=== PATIENT | female | born 1990 | race Caucasian/White ===

== ENCOUNTER 2016-10-24 18:37 | Inpatient (IN) | payer OTHER ==
--- NOTE | 2016-10-24 19:25 | ERPHSYRPT ---
- History of Present Illness Time Seen by Provider: 10/24/16 19:08 Source: patient Patient Subjective Stated Complaint: Pt states that she has been an alcoholic for about 1 year. She drinks one fifth of vodka a day. Last drink was 20 minutes ago. She states she pukes, has nose bleeds, and tremors every morning. Pt states that she does hallucinate at times. She went to see Dr. Kallie Haynes and was told she had a swollen liver and that she needed to stop the alcohol. She was told that if she couldn't do it herself, that she could come here and get admitted so that we could help with the withdrawals. States she wants help getting off the alcohol because she has two kids at home. Triage Nursing Assessment: Pt alert and oriented x3. skin pink warm and dry. afebrile. pt smells of alcohol. bowel sounds present x4. abdomen soft nontender Physician History: The patient is a 26-year-old female with her mother requesting help to stop drinking. She saw Dr. Marvin Fernandes 4 days ago and discussed her alcohol addiction problem and he told her to come to the emergency room when she wanted help to stop drinking. She has been drinking daily for the past year. She drinks approximately a fifth of vodka daily. Today she drank about half of that amount 20 minutes before arriving in the emergency room. She states that frequently in the morning she has shakes and vomits. The shakes and the vomiting are relieved by drinking alcohol. Sometimes at night she has hallucinations. Prior to the year of consuming alcohol daily, she was addicted to pain pills for 3 years. She switched to alcohol to get herself off of the pain pills. Her also consumes as much alcohol as she does. However, he currently is in [facility] and will be out of personal contact for about 2 months. The patient's mother will help her with her 2 children. The pt has been coughing for the past 2 months. Her past medical history is significant only for 2 C-sections. The patient does smoke cigarettes daily. Timing/Duration: other (1 year) Severity of Symptoms-Max: moderate Severity of Symptoms-Current: moderate Context related to: other (alcohol addiction) Associated Symptoms: ingestion Previous symptoms: same symptoms as today Allergies/Adverse Reactions: amphetamine aspartate [From Adderall] Allergy (Verified 10/24/16 18:44) amphetamine sulfate [From Adderall] Allergy (Verified 10/24/16 18:44) dextroamphetamine saccharate [From Adderall] Allergy (Verified 10/24/16 18:44) dextroamphetamine sulfate [From Adderall] Allergy (Verified 10/24/16 18:44) Home Medications: No Reportable Medications [No Reported Medications] 10/24/16 [History] Hx Tetanus, Diphtheria Vaccination/Date Given: No Hx Influenza Vaccination/Date Given: No Hx Pneumococcal Vaccination/Date Given: Yes - Past Medical History Pertinent Past Medical History: Yes Neurological History: No Pertinent History ENT History: No Pertinent History Cardiac History: No Pertinent History Respiratory History: No Pertinent History Endocrine Medical History: Hypoglycemia Musculoskeletal History: Other GI Medical History: No Pertinent History History: No Pertinent History Psycho-Social History: Attention Deficit Disorder, Depression Female Reproductive Disorders: No Pertinent History Other Medical History: Pt has chronic back pain. - Past Surgical History Past Surgical History: Yes Neuro Surgical History: No Pertinent History Cardiac: No Pertinent History Respiratory: No Pertinent History Gastrointestinal: No Pertinent History Genitourinary: No Pertinent History Musculoskeletal: No Pertinent History Female Surgical History: Section - Social History Smoking Status: Current every day smoker How long have you smoked: 5 yrs Exposure to second hand smoke: Yes Drug Use: none Patient Lives Alone: No - Female History Hx Last Menstrual Period: 10/23/2016 Hx Now: No - Review of Systems Constitutional: No Fever, No Chills Eyes: No Symptoms Ears, Nose, & Throat: No Symptoms Respiratory: Cough, No Dyspnea Cardiac: No Chest Pain, No Edema, No Syncope Abdominal/Gastrointestinal: Nausea, Vomiting Genitourinary Symptoms: No Dysuria Musculoskeletal: No Back Pain, No Neck Pain Skin: No Rash Neurological: No Dizziness, No Focal Weakness, No Sensory Changes Psychological: Alcohol Abuse, Hallucinations Endocrine: No Symptoms Hematologic/Lymphatic: No Symptoms Immunological/Allergic: No Symptoms All Other Systems: Reviewed and Negative - Nursing Vital Signs Nursing Vital Signs: Initial Vital Signs Temperature 98.5 F Temperature Source Oral Pulse Rate 96 Respiratory Rate 18 Blood Pressure [] 121/79 Pain Intensity 0 - Physical Exam General Appearance: no apparent distress Eyes, Ears, Nose, Throat Exam: normal ENT inspection, moist mucous membranes Neck Exam: normal inspection, non-tender, supple Respiratory Exam: normal breath sounds, lungs clear, No respiratory distress Cardiovascular Exam: regular rate/rhythm, No edema Gastrointestinal/Abdominal Exam: soft, No tenderness, No distention Extremities Exam: normal inspection, normal range of motion, No evidence of injury, No edema Current Suicidality: denies suicide plan Neurological Exam: alert, health data analyst II-XII nml as tested, oriented x 3 Appearance: appropriate appearance, appropriate insight Behavior/Eye Contact/Speech: alert & cooperative Thoughts/Hallucinations: normal thought pattern Skin Exam: normal color, warm, dry, No rash SpO2 Interpretation: normal SpO2: 96 Oxygen Delivery: Room Air - Radiology Exams Chest X-ray Interpretation: Interpreted by me, Negative Ordered Tests: Active Orders 24 hr Category Date Time Status Micromatic Hone Operator STAT Care 10/24/16 19:31 Active IV Insertion STAT Care 10/24/16 19:03 Active CHEST 2 VIEWS (PA AND LAT) Stat Exams 10/24/16 19:31 Taken ACETAMINOPHEN Stat Lab 10/24/16 19:34 Completed CBC W DIFF Stat Lab 10/24/16 19:34 Completed CMP Stat Lab 10/24/16 19:34 Completed Ethyl Alcohol,Urine Stat Lab 10/24/16 19:34 Completed MAG [MAGNESIUM] Stat Lab 10/24/16 19:30 Completed SALICYLATE Stat Lab 10/24/16 19:34 Completed UA W/ MICROSCOPIC Stat Lab 10/24/16 19:34 Completed Urine Triage Profile Stat Lab 10/24/16 19:34 Completed Medication Summary Discontinued Medications Generic Name Dose Route Start Last Admin Trade Name Freq PRN Reason Stop Dose Admin Diazepam 10 mg 10/24/16 19:32 10/24/16 19:43 Valium 10 Mg/2 Ml Syringe IV 10/24/16 19:33 10 mg STAT ONE Administration Diazepam Confirm 10/24/16 19:38 Valium 10 Mg/2 Ml Syringe Administered 10/24/16 19:39 Dose 10 mg .ROUTE .STK-MED ONE Sodium Chloride 1,000 mls @ 999 mls/hr 10/24/16 19:31 10/24/16 19:43 Sodium Chloride 0.9% 1000 Ml IV 10/24/16 20:31 999 mls/hr .Q1H1M STA Administration Sodium Chloride Confirm 10/24/16 19:38 Sodium Chloride 0.9% 1000 Ml Administered 10/24/16 19:39 Dose 1,000 mls @ ud .ROUTE .STK-MED ONE Ondansetron HCl 4 mg 10/24/16 19:31 10/24/16 19:43 Zofran 4 Mg/2 Ml Vial IV 10/24/16 19:32 4 mg STAT ONE Administration Ondansetron HCl Confirm 10/24/16 19:38 Zofran 4 Mg/2 Ml Vial Administered 10/24/16 19:39 Dose 4 mg .ROUTE .STK-MED ONE Thiamine HCl 100 mg 10/24/16 19:35 10/24/16 19:43 Thiamine 200 Mg/2 Ml IV 10/24/16 19:36 100 mg STAT ONE Administration Thiamine HCl Confirm 10/24/16 19:38 Thiamine 200 Mg/2 Ml Administered 10/24/16 19:39 Dose 200 mg .ROUTE .STK-MED ONE Lab/Rad Data: Laboratory Result Diagrams 10/24/16 19:34 10/24/16 19:34 Laboratory Results 10/24/16 10/24/16 10/24/16 Range/Units 19:34 19:34 19:34 WBC (4.0-10.5) K/mm3 RBC (4.1-5.4) M/mm3 Hgb (12.0-16.0) gm/dl Hct (35-47) % MCV (78-100) fl MCH (26-32) pg MCHC (32-36) g/dl RDW (11.5-14.0) % Plt Count (150-450) K/mm3 MPV (6-9.5) fl Gran % (36.0-66.0) % Lymphocytes % (24.0-44.0) % Monocytes % (0.0-12.0) % Eosinophils % (0.00-5.0) % Basophils % (0.0-0.4) % Basophils # (0-0.4) Sodium (136-145) mEq/L Potassium (3.5-5.1) mEq/L Chloride (98-107) mEq/L Carbon Dioxide (21-32) mEq/L Anion Gap (5-15) MEQ/L BUN (9-20) mg/dL Creatinine (0.55-1.30) mg/dl Estimated GFR ML/MIN Glucose (70-110) MG/DL Calcium (8.5-10.1) mg/dL Magnesium (1.8-2.4) mg/dL Total Bilirubin (0.2-1.0) mg/dL AST (15-37) U/L ALT (12-78) U/L Alkaline Phosphatase (46-116) U/L Serum Total Protein (6.4-8.2) gm/dL Albumin (3.4-5.0) g/dL Ur Collection Type CLEAN CATCH Urine Color YELLOW (YELLOW) Urine Appearance SLIGHTLY CLOUDY (CLEAR) Urine pH 6.0 6.0 (5-6) Ur Specific [place] >=1.030 (1.005-1.025) Urine Protein 100 (Negative) Urine Glucose (UA) NEGATIVE (NEGATIVE) mg/dL Urine Ketones NEGATIVE (NEGATIVE) Urine Nitrite NEGATIVE (NEGATIVE) Urine Bilirubin NEGATIVE (NEGATIVE) Urine Urobilinogen 0.2 (0-1) mg/dL Urine WBC (Auto) NEGATIVE (NEGATIVE) Urine RBC (Auto) TRACE NON-HEM (0-5) Percy/ul Urine Microscopic RBC 0-2 (0-2) /HPF Ur Epithelial Cells FEW (FEW) /HPF Urine Mucus SLIGHT (NEGATIVE) /HPF Salicylates (2.8-20.0) mg/dl Urine Opiates Level NEG. (NEGATIVE) Ur Methadone NEG. (NEGATIVE) Acetaminophen (10-30) ug/ml Urine Barbiturates NEG. (NEGATIVE) Ur Phencyclidine (PCP) NEG. (NEGATIVE) Urine Amphetamine NEG. (NEGATIVE) U Benzodiazepine Level NEG. (NEGATIVE) Urine Cocaine NEG. (NEGATIVE) Urine Marijuana (THC) NEG. (NEGATIVE) Urine Ethyl Alcohol 297 H (0.00-20) mg/dl Specimen Received 10/24/16:1930 10/24/16 10/24/16 10/24/16 Range/Units 19:34 19:34 19:30 WBC 5.2 (4.0-10.5) K/mm3 RBC 4.39 (4.1-5.4) M/mm3 Hgb 14.2 (12.0-16.0) gm/dl Hct 41.9 (35-47) % MCV 95.4 (78-100) fl MCH 32.3 H (26-32) pg MCHC 33.9 (32-36) g/dl RDW 14.9 H (11.5-14.0) % Plt Count 125 L (150-450) K/mm3 MPV 10.7 H (6-9.5) fl Gran % 59.8 (36.0-66.0) % Lymphocytes % 23.6 L (24.0-44.0) % Monocytes % 13.3 H (0.0-12.0) % Eosinophils % 1.9 (0.00-5.0) % Basophils % 1.4 (0.0-0.4) % Basophils # 0.07 (0-0.4) Sodium 141 (136-145) mEq/L Potassium 3.8 (3.5-5.1) mEq/L Chloride 101 (98-107) mEq/L Carbon Dioxide 23.8 (21-32) mEq/L Anion Gap 19.9 H (5-15) MEQ/L BUN 9 (9-20) mg/dL Creatinine 0.61 (0.55-1.30) mg/dl Estimated GFR > 60 ML/MIN Glucose 91 (70-110) MG/DL Calcium 9.4 (8.5-10.1) mg/dL Magnesium 1.7 L (1.8-2.4) mg/dL Total Bilirubin 0.6 (0.2-1.0) mg/dL AST 245 H (15-37) U/L ALT 177 H (12-78) U/L Alkaline Phosphatase 119 H (46-116) U/L Serum Total Protein 8.6 H (6.4-8.2) gm/dL Albumin 4.6 (3.4-5.0) g/dL Ur Collection Type Urine Color (YELLOW) Urine Appearance (CLEAR) Urine pH (5-6) Ur Specific [place] (1.005-1.025) Urine Protein (Negative) Urine Glucose (UA) (NEGATIVE) mg/dL Urine Ketones (NEGATIVE) Urine Nitrite (NEGATIVE) Urine Bilirubin (NEGATIVE) Urine Urobilinogen (0-1) mg/dL Urine WBC (Auto) (NEGATIVE) Urine RBC (Auto) (0-5) Percy/ul Urine Microscopic RBC (0-2) /HPF Ur Epithelial Cells (FEW) /HPF Urine Mucus (NEGATIVE) /HPF Salicylates 3.8 (2.8-20.0) mg/dl Urine Opiates Level (NEGATIVE) Ur Methadone (NEGATIVE) Acetaminophen < 2.0 L (10-30) ug/ml Urine Barbiturates (NEGATIVE) Ur Phencyclidine (PCP) (NEGATIVE) Urine Amphetamine (NEGATIVE) U Benzodiazepine Level (NEGATIVE) Urine Cocaine (NEGATIVE) Urine Marijuana (THC) (NEGATIVE) Urine Ethyl Alcohol (0.00-20) mg/dl Specimen Received - Progress Progress: unchanged Will see patient in: hospital (observation) Counseled pt/family regarding: lab results, diagnosis, rad results - Departure Time of Disposition: 21:20 Departure Disposition: Observation Clinical Impression: Alcohol withdrawal Condition: Stable Critical Care Time: No
[2016-10-24] MEDS ORDERED: Sodium Chloride 0.9% 1000 ML 1,000 ML IV STA (19:31)
[2016-10-24] MEDS ORDERED: Zofran 4 MG/2 ML VIAL IV ONE (19:31)
[2016-10-24] MEDS ORDERED: VALIUM 10 MG/2 ML SYRINGE IV ONE (19:32)
[2016-10-24] MEDS ORDERED: THIAMINE 200 MG/2 ML IV ONE (19:35)
[2016-10-24 19:38] LABS: BASOPHIL % 1.4 % (0.0-0.4); Eosinophil % 1.9 % (0.00-5.0); Granulocytes % 59.8 % (36.0-66.0); Lymphocytes % 23.6 % (24.0-44.0); Mean Cell Volume 95.4 fl (78-100); Mean Corpuscular Hemoglobin 32.3 pg (26-32); Mean Platelet Volume 10.7 fl (6-9.5); Monocytes % 13.3 % (0.0-12.0); Platelet Count 125 K/mm3 (150-450); Red Blood Count 4.39 M/mm3 (4.1-5.4); Red Cell Distribution Width 14.9 % (11.5-14.0); White Blood Count 5.2 K/mm3 (4.0-10.5)
[2016-10-24] MEDS ORDERED: Sodium Chloride 0.9% 1000 ML 1,000 ML ONE (19:38)
[2016-10-24] MEDS ORDERED: THIAMINE 200 MG/2 ML ONE (19:38)
[2016-10-24] MEDS ORDERED: Zofran 4 MG/2 ML VIAL ONE (19:38)
[2016-10-24] MEDS ORDERED: VALIUM 10 MG/2 ML SYRINGE ONE (19:38)
[2016-10-24 19:56] LABS: ALBUMIN 4.6 g/dL (3.4-5.0); ALKALINE PHOSPHATASE 119 U/L (46-116); ANION GAP 19.9 MEQ/L (5-15); BILIRUBIN,TOTAL 0.6 mg/dL (0.2-1.0); BLOOD UREA NITROGEN 9 mg/dL (9-20); CHLORIDE 101 mEq/L (98-107); Carbon Dioxide 23.8 mEq/L (21-32); Glucose 91 MG/DL (70-110); Potassium 3.8 mEq/L (3.5-5.1); SGOT/AST 245 U/L (15-37); SGPT/ALT 177 U/L (12-78); SODIUM 141 mEq/L (136-145); Total Protein 8.6 gm/dL (6.4-8.2)
[2016-10-24 19:57] LABS: COMPLETE URINE MICROSCOPIC? YES; Collection Type CLEAN CATCH; Epithelial Cells FEW /HPF (FEW); Mucus SLIGHT /HPF (NEGATIVE)
[2016-10-24 19:59] LABS: ACETAMINOPHEN < 2.0 ug/ml (10-30)
[2016-10-24] MEDS ORDERED: Ativan 2 MG/1 ML VIAL IV PRN (22:11)
[2016-10-24] MEDS: Sodium Chloride 0.9% 1000 ML 1,000 ML IV SCH (22:18)
[2016-10-24] MEDS: Ativan 2 MG/1 ML VIAL IV PRN (23:43)
[2016-10-25] MEDS ORDERED: Phenergan 25 MG INJ IV PRN ×2 (00:41→10:39)
[2016-10-25] MEDS: Sodium Chloride 0.9% 1000 ML 1,000 ML IV SCH (07:58)
[2016-10-25] MEDS: THERAGRAN MULTIVITAMIN PO SCH (08:10)
[2016-10-25] MEDS: FOLATE 1 MG PO SCH (08:10)
[2016-10-25] MEDS: VITAMIN B-1 100 MG PO SCH (08:11)
[2016-10-25] MEDS: Ativan 2 MG/1 ML VIAL IV PRN ×8 (08:11→22:33)
--- NOTE | 2016-10-25 08:47 | XRAY ---
Indication: Cough. Comparison: None PA/lateral chest demonstrates normal heart, lungs, and bony thorax.
[2016-10-25] MEDS ORDERED: IMODIUM 2 MG PO PRN (10:38)
--- NOTE | 2016-10-25 10:40 | PCM.HP ---
History of Present Illness - Chief Complaint Chief Complaint: alcohol withdrawal Date: 10/25/16 History of Present Illness: is a 26 year old female. with history of polysubstance abuse in the past which she stopped doing about 2 years ago but substituted alcohol to get her off of the pills she had been taking. She has been drinking about 1/5 a gallon of hard liquor for the last 2 years. She cannot go without a drink for more then a few hours without extreme anxiety and vomiting. She wants to quit drinking for her children. She tried to do this as an outpatient and was given gabapentin to try to help but was unable to stop due to the severe withdraw symptoms. Her last drink was yesterday prior to arrival in the ED. She is having tremors, sweats, nausea and anxiousness now. She feels dizzy and off balance as well. - Review of Systems Constitutional: Chills, Fatigue, No Fever Eyes: No Symptoms Ears, Nose, & Throat: No Symptoms, Nose Congestion Respiratory: Cough, No Short Of Breath Cardiac: Palpitations, No Chest Pain, No Edema, No Syncope Abdominal/Gastrointestinal: Nausea, No Abdominal Pain, No Vomiting, No Diarrhea Genitourinary Symptoms: No Dysuria Musculoskeletal: No Back Pain, No Neck Pain Skin: No Rash Neurological: Dizziness, Headache, Irritability, Parasthesia, Tremors, No Focal Weakness, No Sensory Changes Psychological: No Symptoms Endocrine: No Symptoms Hematologic/Lymphatic: No Symptoms Immunological/Allergic: No Symptoms Medications & Allergies Home Medications: Home Medication List No Reportable Medications [No Reported Medications] 10/24/16 [History Confirmed 10/24/16] Allergies/Adverse Reactions: Allergies Allergy/AdvReac Type Severity Reaction Status Date / Time amphetamine aspartate Allergy Verified 10/24/16 18:44 [From Adderall] amphetamine sulfate Allergy Verified 10/24/16 18:44 [From Adderall] dextroamphetamine saccharate Allergy Verified 10/24/16 18:44 [From Adderall] dextroamphetamine sulfate Allergy Verified 10/24/16 18:44 [From Adderall] - Past Medical History Past Medical History: Yes Neurological History: No Pertinent History ENT History: No Pertinent History Cardiac History: No Pertinent History Respiratory History: No Pertinent History Endocrine Medical History: Hypoglycemia Musculoskelatal History: No Pertinent History GI Medical History: No Pertinent History History: No Pertinent History Pyscho-Social History: Anxiety, Depression Reproductive Disorders: No Pertinent History Comment: Pt has chronic back pain. - Female History Hx Last Menstrual Period: 10/22/16 Are you now?: No - Past Surgical History Past Surgical History: Yes Neuro Surgical History: No Pertinent History Cardiac History: No Pertinent History Respiratory Surgery: No Pertinent History GI Surgical History: No Pertinent History Genitourinary Surgical Hx: No Pertinent History Musculskeletal Surgical Hx: No Pertinent History Female Surgical History: Section - Social History Smoking Status: Heavy tobacco smoker How long have you smoked: 12 yrs Exposure to second hand smoke: Yes Alcohol: Daily Drug Use: none - Physical Exam Vital Signs: Vital Signs - 24 hr Temp Pulse Resp BP Pulse Ox 10/25/16 10:00 98.5 F 98 H 20 114/69 94 L 10/25/16 07:43 99.6 F 79 20 129/62 96 10/25/16 05:41 74 18 10/25/16 04:00 99.2 F 94 H 18 133/81 96 10/25/16 02:00 80 17 10/25/16 00:00 98.2 F 78 20 117/72 97 10/24/16 22:42 98.9 F 87 17 114/64 96 10/24/16 21:27 96 10/24/16 20:47 96 H 18 121/79 96 10/24/16 19:51 104 H 18 116/80 96 10/24/16 18:38 98.5 F 95 H 18 135/95 96 General Appearance: anxiety, other (diaphoretic tremors of hands body and voice) Neurologic Exam: alert, oriented x 3, cooperative, sensation nml, No motor deficits Eye Exam: PERRL/EOMI, eyes nml inspection Ears, Nose, Throat Exam: normal ENT inspection, pharynx normal, moist mucous membranes Neck Exam: normal inspection, non-tender, supple, full range of motion Respiratory Exam: normal breath sounds, lungs clear, No respiratory distress Cardiovascular Exam: regular rate/rhythm, normal heart sounds, normal peripheral pulses Gastrointestinal/Abdomen Exam: soft, normal bowel sounds, No tenderness, No mass Back Exam: normal inspection, normal range of motion, No CVA tenderness, No vertebral tenderness Extremity Exam: normal inspection, normal range of motion, pelvis stable Skin Exam: normal color, warm, No rash Lymphatic Exam: No adenopathy Assessment/Plan (1) Alcohol withdrawal Current Visit: Yes Status: Acute Qualifiers: Complication of substance-induced condition: with delirium Qualified Code(s ): F10.231 - Alcohol dependence with withdrawal delirium Assessment & Plan: she is highly motivated to quit. Will do inpatient for withdrawal and will need intense outpatient follow up as well last drink was 10/24/16 use CIWA protocol and prn ativan. Add phenergan prn nausea and gabapentin tid to help with the withdrawal severe symptoms she is suffering from use the normal saline as well iv hydration thiamine and folic acid Code(s): F10.239 - ALCOHOL DEPENDENCE WITH WITHDRAWAL, UNSPECIFIED (2) Elevated transaminase level Current Visit: Yes Status: Acute Code(s): R74.0 - NONSPEC ELEV OF LEVELS OF TRANSAMNS & LACTIC ACID DEHYDRGNSE
[2016-10-25] MEDS: NEURONTIN 300 MG PO SCH ×3 (11:30→20:36)
[2016-10-25] MEDS: NICODERM CQ 14 MG TOP SCH (15:07)
[2016-10-26] MEDS: Ativan 2 MG/1 ML VIAL IV PRN ×5 (00:57→20:18)
[2016-10-26] MEDS: Sodium Chloride 0.9% 1000 ML 1,000 ML IV SCH ×2 (02:37→19:37)
[2016-10-26] MEDS: Zofran 4 MG/2 ML VIAL IV PRN ×2 (06:22→16:30)
--- NOTE | 2016-10-26 09:38 | PCM.NOTE ---
Date and Time: 10/26/16935 Subjective Assessment: still nauseated did eat a little yesterday no vomiting she did walk a little but off balance still shaky very drowsy some diarrhea mild at this time Objective Exam General Appearance: other (drowsy but awakens easily) Neurologic Exam: oriented x 3, cooperative, other (tremors hands improving) Skin Exam: warm, dry Eye Exam: pale conjunctivae, No scleral icterus Ears, Nose, Throat Exam: moist mucous membranes Neck Exam: non-tender, supple Respiratory Exam: normal breath sounds, lungs clear Cardiovascular Exam: regular rate/rhythm, normal heart sounds, No edema Gastrointestinal/Abdomen Exam: soft, normal bowel sounds, No tenderness, No distention Extremity Exam: No pedal edema OBJECTIVE DATA Vital Signs: Vital Signs - 24 hr Temp Pulse Resp BP Pulse Ox 10/26/16 07:33 98.5 F 87 18 118/76 97 10/26/16 06:00 98.7 F 75 18 106/59 94 L 10/26/16 04:00 98.7 F 75 18 106/59 94 L 10/26/16 02:00 99.2 F 88 20 130/82 97 10/26/16 00:00 99.3 F 88 20 124/85 96 10/25/16 20:00 99.4 F 102 H 20 131/86 97 10/25/16 18:00 98.3 F 95 H 20 128/72 95 10/25/16 16:00 98.8 F 68 18 119/71 98 10/25/16 14:05 91 H 20 138/90 99 10/25/16 12:00 20 10/25/16 11:57 99 F 93 H 20 120/75 97 10/25/16 10:00 98.5 F 98 H 20 114/69 94 L Oxygen-Last 24 hours O2 Percentage 4 Liters = 36% O2 Percentage 4 Liters = 36% Pain Assessment - Last Documented Pain Intensity 4 [facility] and Output: Intake & Output 10/23/16 10/24/16 10/25/16 10/26/16 11:59 11:59 11:59 11:59 Intake Total 4048 Balance 4048 Weight 65.544 kg Multi-Disciplinary Progress Notes: Multi-Disciplinary Progress Notes 10/26/16 06:35 Respiratory Note by Thad Melgoza SET SUCTION UP ON THIS PT W/ BIBI PER NURSING REQUEST. Initialized on 10/26/16 06:35 - END OF NOTE 10/25/16 20:05 Case Management Note by Karey Rutherford DISCHARGE PLAN REVIEWED. NORMALLY LIVES AT HOME WITH SPOUSE AND CHILDREN. PT DOES ADMIT TO DRINKING 1 5TH OF VODKA DAILY. ON FURTHER INVESTIGATION FOUND THE CHILDREN ARE SAFE AND STAYING WITH THE GRANDMOTHER. PLAN FOR PT TO GO HOME TO PRE EPISODIC LEVEL OF FUNCTION AND ABLE TO TOLERATE WITH ETOH DAILY. WILL CONTINUE TO MONITOR FOR ALL D/C NEEDS. Initialized on 10/25/16 20:05 - END OF NOTE Assessment/Plan (1) Alcohol withdrawal Current Visit: Yes Status: Acute Qualifiers: Complication of substance-induced condition: with delirium Qualified Code(s ): F10.231 - Alcohol dependence with withdrawal delirium Assessment & Plan: continue the gabapentin with the prn ativan for CIWA score while awake and symptomatic check labs in am continue telemetry [facility] consult tomorrow Code(s): F10.239 - ALCOHOL DEPENDENCE WITH WITHDRAWAL, UNSPECIFIED (2) Elevated transaminase level Current Visit: Yes Status: Acute Code(s): R74.0 - NONSPEC ELEV OF LEVELS OF TRANSAMNS & LACTIC ACID DEHYDRGNSE
[2016-10-26] MEDS: THERAGRAN MULTIVITAMIN PO SCH (10:00)
[2016-10-26] MEDS: VITAMIN B-1 100 MG PO SCH (10:00)
[2016-10-26] MEDS: NEURONTIN 300 MG PO SCH ×3 (10:00→21:11)
[2016-10-26] MEDS: FOLATE 1 MG PO SCH (10:00)
[2016-10-26] MEDS: NICODERM CQ 14 MG TOP SCH (15:37)
[2016-10-27] MEDS: Ativan 2 MG/1 ML VIAL IV PRN ×3 (00:15→22:55)
[2016-10-27] MEDS: Zofran 4 MG/2 ML VIAL IV PRN (00:15)
[2016-10-27] MEDS: Sodium Chloride 0.9% 1000 ML 1,000 ML IV SCH ×2 (04:16→13:19)
[2016-10-27 05:44] LABS: Mean Cell Volume 98.4 fl (78-100); Mean Platelet Volume 11.8 fl (6-9.5); Platelet Count 79 K/mm3 (150-450); Red Blood Count 3.78 M/mm3 (4.1-5.4); Red Cell Distribution Width 14.2 % (11.5-14.0); White Blood Count 4.5 K/mm3 (4.0-10.5)
[2016-10-27 05:50] LABS: Mean Corpuscular Hemoglobin 32.2 pg (26-32)
[2016-10-27 05:53] LABS: ANION GAP 15.5 MEQ/L (5-15); BLOOD UREA NITROGEN 11 mg/dL (9-20); CHLORIDE 104 mEq/L (98-107); Carbon Dioxide 23.8 mEq/L (21-32); Glucose 105 MG/DL (70-110); MAGNESIUM 1.5 mg/dL (1.8-2.4); Potassium 3.5 mEq/L (3.5-5.1); SODIUM 140 mEq/L (136-145)
[2016-10-27] MEDS: FOLATE 1 MG PO SCH (08:40)
[2016-10-27] MEDS: Magnesium 1 Gm / 100 Ml D5W*** 100 ML IV SCH ×2 (08:42→09:37)
[2016-10-27] MEDS: THERAGRAN MULTIVITAMIN PO SCH (08:45)
[2016-10-27] MEDS: VITAMIN B-1 100 MG PO SCH (08:46)
[2016-10-27] MEDS: NEURONTIN 300 MG PO SCH ×3 (09:37→22:56)
[2016-10-27] MEDS: NICODERM CQ 14 MG TOP SCH (14:55)
--- NOTE | 2016-10-27 18:31 | PCM.NOTE ---
Date and Time: 10/27/161828 Subjective Assessment: feeling a little better today was able to eat more this am did stretch out a little longer on the ativan. she is still shaking weak and fatigued. Objective Exam General Appearance: no apparent distress Neurologic Exam: alert, oriented x 3, cooperative Skin Exam: warm, dry Eye Exam: No scleral icterus Ears, Nose, Throat Exam: moist mucous membranes Neck Exam: non-tender, supple Cardiovascular Exam: regular rate/rhythm, normal heart sounds, No edema Gastrointestinal/Abdomen Exam: soft, normal bowel sounds, No tenderness Extremity Exam: normal inspection, No ralf's sign, No pedal edema OBJECTIVE DATA Vital Signs: Vital Signs - 24 hr Temp Pulse Resp BP Pulse Ox 10/27/16 16:00 98.4 F 79 18 131/93 99 10/27/16 11:16 98.4 F 95 H 20 110/65 96 10/27/16 07:43 98.6 F 87 20 109/69 97 10/27/16 04:00 97.6 F 86 18 121/88 98 10/26/16 23:59 97.6 F 88 18 136/86 97 10/26/16 19:51 98.7 F 93 H 18 123/77 98 Pain Assessment - Last Documented Pain Intensity 4 Pain Scale Used 0-10 Pain Scale Intake and Output: Intake & Output 10/25/16 10/26/16 10/27/16 10/28/16 11:59 11:59 11:59 11:59 Intake Total 4048 4733 1368 Balance 4048 4733 1368 Weight 65.544 kg 67.767 kg 67.767 kg Lab Results: Lab Results-Last 24 Hours 10/27/16 10/27/16 10/27/16 Range/Units 05:36 05:36 11:22 WBC 4.5 (4.0-10.5) K/mm3 RBC 3.78 L (4.1-5.4) M/mm3 Hgb 12.2 (12.0-16.0) gm/dl Hct 37.2 (35-47) % MCV 98.4 (78-100) fl MCH 32.2 H (26-32) pg MCHC 32.8 (32-36) g/dl RDW 14.2 H (11.5-14.0) % Plt Count 79 L (150-450) K/mm3 MPV 11.8 H (6-9.5) fl Sodium 140 (136-145) mEq/L Potassium 3.5 (3.5-5.1) mEq/L Chloride 104 (98-107) mEq/L Carbon Dioxide 23.8 (21-32) mEq/L Anion Gap 15.5 H (5-15) MEQ/L BUN 11 (9-20) mg/dL Creatinine 0.62 (0.55-1.30) mg/dl Estimated GFR > 60 ML/MIN Glucose 105 (70-110) MG/DL Calcium 8.5 (8.5-10.1) mg/dL Magnesium 1.5 L (1.8-2.4) mg/dL Urine pH 7.0 (3-8.5) Urine Ethyl Alcohol 1 (0.00-20) mg/dl Slides for Path Review YES Assessment/Plan (1) Alcohol withdrawal Current Visit: Yes Status: Acute Qualifiers: Complication of substance-induced condition: with delirium Qualified Code(s ): F10.231 - Alcohol dependence with withdrawal delirium Assessment & Plan: [facility] consult today continue ciwa protocol appears to be improving hope for improvement in the next 1 to 2 days. Code(s): F10.239 - ALCOHOL DEPENDENCE WITH WITHDRAWAL, UNSPECIFIED (2) Elevated transaminase level Current Visit: Yes Status: Acute Code(s): R74.0 - NONSPEC ELEV OF LEVELS OF TRANSAMNS & LACTIC ACID DEHYDRGNSE (3) Thrombocytopenia Current Visit: Yes Status: Acute
[2016-10-28] MEDS: Sodium Chloride 0.9% 1000 ML 1,000 ML IV SCH ×2 (01:21)
[2016-10-28 07:30] VITALS: BP 109/63; PULSE 71; O2SAT 98
--- NOTE | 2016-10-28 08:22 | PCM.DCORD ---
- Discharge Discharge Date: 10/28/16 Disposition: Home, Self-Care Condition: Stable Prescriptions: New Gabapentin 300 mg PO TID #0 capsule Additional Instructions: Go To [facility] to establish for outpatient treatment today Follow up with: ANYA GARCÍA [Primary Care Provider] -
[2016-10-28] MEDS: FOLATE 1 MG PO SCH (08:34)
[2016-10-28] MEDS: VITAMIN B-1 100 MG PO SCH (08:34)
[2016-10-28] MEDS: NEURONTIN 300 MG PO SCH (08:34)
[2016-10-28] MEDS: THERAGRAN MULTIVITAMIN PO SCH (08:34)
--- NOTE | 2016-10-28 12:51 | PCM.DS ---
Discharge Summary Date of Admission: 10/24/16 21:40 Date of Discharge: 10/28/16 Admitting Physician: ANYA GARCÍA Primary Care Provider: ANYA GARCÍA Allergies Allergies amphetamine aspartate [From Adderall] Allergy (Verified 10/24/16 18:44) amphetamine sulfate [From Adderall] Allergy (Verified 10/24/16 18:44) dextroamphetamine saccharate [From Adderall] Allergy (Verified 10/24/16 18:44) dextroamphetamine sulfate [From Adderall] Allergy (Verified 10/24/16 18:44) Hospital Summary - Hospital Course Hospital Course: She has a heavy alcohol use history and was highly motivated to quit for her children and and was attempting to do it at home but would become very nauseated and physically ill if she went only a few hours without a drink. She was admitted for alcohol withdraw she did have some hallucinations shaking unstable gait and tremors. SHe was treated with ativan per [facility] protocol as well as gabapentin. She improved by day 5 was requiring much less ativan and felt comfortable with discharge to home. She was seen by [facility] while here and arrangements made to set her up with continued intensive outpatient treatment for substance abuse. She will continue the gabapentin for the next week to help. We also discussed options such as antabuse if she wants. - Vitals & Intake/Output Vital Signs: Vital Signs Temperature 98.3 F 10/28/16 07:29 Pulse Rate 71 10/28/16 07:29 Respiratory Rate 18 10/28/16 07:29 Blood Pressure 109/63 10/28/16 07:29 O2 Sat by Pulse Oximetry 98 10/28/16 07:29 Oxygen-Last Documented O2 Percentage 4 Liters = 36% Intake & Output: Intake & Output 10/26/16 10/27/16 10/28/16 10/29/16 11:59 11:59 11:59 11:59 Intake Total 404 4734 4835 Balance 4046 4733 483 Weight 65.544 kg 67.767 kg 67.767 kg - Lab Result Diagrams: 10/27/16 05:36 10/27/16 05:36 - Procedures and Test Procedures and Tests throughout Hospitalization: Therapy Orders & Screens 10/24/16 23:30 Smoking Cessation Education ONCE Comment: Diagnosis: alcohol withdrawal Smoking Status: Heavy tobacco smoker How long have you smoked: 12 yrs Have you smoked in the past 12 months: Yes Approximately how many cigarettes per day: 20 Do you dip or chew tobacco: No Discharge Exam General Appearance: no apparent distress, alert Neurologic Exam: alert, oriented x 3, cooperative, normal mood/affect, nml cerebellar function, sensation nml, No motor deficits Skin Exam: normal color, warm, dry Eye Exam: PERRL, EOMI, eyes nml inspection Ears, Nose, Throat Exam: normal ENT inspection, pharynx normal, moist mucous membranes Neck Exam: normal inspection, non-tender, supple, full range of motion Respiratory Exam: normal breath sounds, lungs clear, No respiratory distress Cardiovascular Exam: regular rate/rhythm, normal heart sounds Gastrointestinal/Abdomen Exam: soft, No tenderness, No mass Extremity Exam: normal inspection, normal range of motion Back Exam: normal inspection, normal range of motion, No CVA tenderness, No vertebral tenderness Pelvic Exam: deferred Rectal Exam: deferred Final Diagnosis/Problem List - Final Discharge Diagnosis/Problem (1) Alcohol withdrawal Status: Acute (2) Elevated transaminase level Status: Acute (3) Thrombocytopenia Status: Acute - Discharge Disposition: Home, Self-Care Condition: Stable Prescriptions: New Gabapentin 300 mg PO TID #0 capsule Instructions: Depression -- Adult, Alcohol Abuse and Alcoholism Additional Instructions: Go To [facility] to establish for outpatient treatment today Follow up with: ANYA GARCÍA [Primary Care Provider] - 11/04/16 10:30 am Forms: Discharge Instructions
== END 2016-10-28 08:55 | disposition home or self-care (01) | DRG 897 ==
LOC: ED 18:37 → MED SURG 21:40 → UNDOADMOB 21:40 → OBSVTOIN 21:40 → INTOOBSV 21:40 → OBSVTOIN 10-25 10:40 → INTOOBSV 10-25 10:40 → UNDODISIN 10-28 08:55
PROVIDERS: ADMIT Family Medicine; ATTEND Family Medicine
DX: F10.231 Alcohol dependence with withdrawal delirium (principal); F10.239 Alcohol dependence with withdrawal, unspecified; R74.0 Nonspecific elevation of levels of transaminase and lactic acid dehydrogenase [LDH]; D69.6 Thrombocytopenia, unspecified; F41.8 Other specified anxiety disorders; M54.9 Dorsalgia, unspecified; G89.29 Other chronic pain; F45.42 Pain disorder with related psychological factors; Z72.0 Tobacco use
CPT/HCPCS: 36000; 36415; 71020; 80048; 80053; 80307; 80320; 81000; 83735; 83986; 85025; 85027; 90791; 93041; 93268; 96360; 96374; 96375; 99284; G0378; G0481; J2060; J2405; J2550; J3360; J3475; Q3014

== ENCOUNTER 2016-11-24 07:24 | Observation (INO) | payer OTHER ==
[2016-11-24] MEDS ORDERED: Sodium Chloride 0.9% 1000 ML 1,000 ML IV STA (07:49)
[2016-11-24 08:08] LABS: Collection Type VOID
--- NOTE | 2016-11-24 08:08 | ERPHSYRPT ---
- History of Present Illness Time Seen by Provider: 11/24/16 07:45 Historian: patient Exam Limitations: clinical condition Patient Subjective Stated Complaint: pt co left sided abd pain since this morning, nausea and vomitng this morning, states no bm for 5 days not. no pt states vomiting for a week now, she is poor historian, Triage Nursing Assessment: pt is anxious, alert, flight of ideas, resp easy,, abd soft, Physician History: PATIENT WITH HISTORY OF ALCOHOL ABUSE, DRINKS VODKA EACH MORNING, COMPLAINS OF LEFT UPPER ABDOMINAL PAIN INITIALLY, TOOK AN UNKNOWN AMOUNT OF AUNTS ADDERALL, NOW HAS PALPITATIONS AND FELLS THE SHAKES. SISTER STATES PATIENT HAS AUDITORY AND VISUAL HALLUCINATIONS. TALKING TO PEOPLE WHO ARE NOT IN THE ROOM. Timing/Duration: today Activities at Onset: none Abdominal Pain Onset Location: [facility] Pain Radiation: [facility] Severity of Pain-Max: moderate Severity of Pain-Current: none Modifying Factors: Improves With: nothing Associated Symptoms: other (PALPITATIONS, SHAKES) Previous symptoms: no prior history Allergies/Adverse Reactions: amphetamine aspartate [From Adderall] Allergy (Verified 11/24/16 07:36) amphetamine sulfate [From Adderall] Allergy (Verified 11/24/16 07:36) dextroamphetamine saccharate [From Adderall] Allergy (Verified 11/24/16 07:36) dextroamphetamine sulfate [From Adderall] Allergy (Verified 11/24/16 07:36) Home Medications: No Reportable Medications [No Reported Medications] 11/24/16 [History] Hx Tetanus, Diphtheria Vaccination/Date Given: No Hx Influenza Vaccination/Date Given: No Hx Pneumococcal Vaccination/Date Given: No Immunizations Up to Date: Yes - Review of Systems Constitutional: No Symptoms, No Fever, No Chills Eyes: No Symptoms Ears, Nose, & Throat: No Symptoms Respiratory: No Cough, No Dyspnea Cardiac: No Chest Pain, No Edema, No Syncope Abdominal/Gastrointestinal: No Abdominal Pain, No Nausea, No Vomiting, No Diarrhea Genitourinary Symptoms: No Symptoms, No Dysuria Musculoskeletal: No Symptoms, No Back Pain, No Neck Pain Skin: No Symptoms, No Rash Neurological: No Dizziness, No Focal Weakness, No Sensory Changes Psychological: Alcohol Abuse, Hallucinations Endocrine: No Symptoms All Other Systems: Reviewed and Negative - Past Medical History Pertinent Past Medical History: Yes Neurological History: No Pertinent History ENT History: No Pertinent History Cardiac History: No Pertinent History Respiratory History: No Pertinent History Endocrine Medical History: Hypoglycemia Musculoskeletal History: No Pertinent History GI Medical History: No Pertinent History History: No Pertinent History Psycho-Social History: Anxiety, Depression Female Reproductive Disorders: No Pertinent History Other Medical History: swollen liver - Past Surgical History Past Surgical History: Yes Neuro Surgical History: No Pertinent History Cardiac: No Pertinent History Respiratory: No Pertinent History Gastrointestinal: No Pertinent History Genitourinary: No Pertinent History Musculoskeletal: No Pertinent History Female Surgical History: Section - Social History Smoking Status: Current every day smoker How long have you smoked: 12 yrs Exposure to second hand smoke: Yes Drug Use: other Patient Lives Alone: No - Female History Hx Last Menstrual Period: oct Hx Now: No - Nursing Vital Signs Nursing Vital Signs: Initial Vital Signs Temperature 97.2 F Temperature Source Oral Pulse Rate 108 Respiratory Rate 16 Blood Pressure [Right Arm] 146/107 Pain Intensity 0 - Physical Exam General Appearance: anxiety, other (RESTING TREMOR) Eye Exam: PERRL/EOMI, eyes nml inspection Ears, Nose, Throat Exam: normal ENT inspection, pharynx normal, moist mucous membranes Neck Exam: normal inspection, non-tender, supple, full range of motion Respiratory Exam: normal breath sounds, lungs clear, No respiratory distress Cardiovascular Exam: regular rate/rhythm, normal heart sounds Gastrointestinal/Abdomen Exam: soft, normal bowel sounds, other (NONTENDER, NO PALPABLE MASSES), No tenderness, No mass Back Exam: normal inspection, normal range of motion, No CVA tenderness, No vertebral tenderness Extremity Exam: normal inspection, normal range of motion, pelvis stable Neurologic Exam: alert, oriented x 3, cooperative, normal mood/affect, nml cerebellar function, sensation nml, other, No motor deficits Skin Exam: normal color, warm, dry SpO2 Interpretation: normal SpO2: 99 Oxygen Delivery: Room Air - Course EKG Interpreted by Me: RATE, Sinus Tach, NORMAL AXIS Ordered Tests: Active Orders 24 hr Category Date Time Status Up With Assistance ROUTINE Activity 11/24/16 09:29 Ordered Accucheck Q4H Care 11/24/16 09:29 Ordered Admission/Status Order ROUTINE Care 11/24/16 09:29 Ordered Call Admit Doctor for Orders ON ADMISSION Care 11/24/16 09:30 Ordered Code Status Order ROUTINE Care 11/24/16 09:29 Ordered EKG-ER Only STAT Care 11/24/16 07:49 Active IV Care Q6H Care 11/24/16 09:29 Ordered IV Insertion STAT Care 11/24/16 07:49 Active Pulse Oximetry (ED) STAT Care 11/24/16 07:49 Active Telemetry ROUTINE Care 11/24/16 09:29 Ordered Vital Signs Q4H Care 11/24/16 09:29 Ordered Regular Diet Diet 11/24/16 Lunch Ordered AMYLASE Stat Lab 11/24/16 07:30 Completed CBC W DIFF Stat Lab 11/24/16 07:30 Completed CMP Stat Lab 11/24/16 07:30 Completed Ethyl Alcohol,Urine Stat Lab 11/24/16 07:59 Completed HCG,QUALITATIVE URINE Stat Lab 11/24/16 07:59 Completed Manual Differential NC Stat Lab 11/24/16 07:30 Completed UA W/ MICROSCOPIC Stat Lab 11/24/16 07:59 Completed Urine Triage Profile Stat Lab 11/24/16 07:59 Completed Transfer Order Routine Transfer 11/24/16 09:28 Ordered Medication Summary Discontinued Medications Generic Name Dose Route Start Last Admin Trade Name Freq PRN Reason Stop Dose Admin Chlordiazepoxide HCl 50 mg 11/24/16 08:53 11/24/16 09:13 Librium 25 Mg PO 11/24/16 08:54 50 mg STAT ONE Administration Sodium Chloride 1,000 mls @ 999 mls/hr 11/24/16 07:49 11/24/16 08:13 Sodium Chloride 0.9% 1000 Ml IV 11/24/16 08:49 999 mls/hr .Q1H1M STA Administration Sodium Chloride Confirm 11/24/16 08:09 Sodium Chloride 0.9% 1000 Ml Administered 11/24/16 08:10 Dose 1,000 mls @ ud .ROUTE .STK-MED ONE Lorazepam 2 mg 11/24/16 08:54 11/24/16 09:13 Ativan 2 Mg/1 Ml Vial IV 11/24/16 08:55 2 mg STAT ONE Administration Lorazepam Confirm 11/24/16 08:57 Ativan 2 Mg/1 Ml Vial Administered 11/24/16 08:58 Dose 2 mg .ROUTE .STK-MED ONE Lab/Rad Data: Laboratory Result Diagrams 11/24/16 07:30 11/24/16 07:30 Laboratory Results 11/24/16 11/24/16 11/24/16 Range/Units 07:59 07:59 07:59 WBC (4.0-10.5) K/mm3 RBC (4.1-5.4) M/mm3 Hgb (12.0-16.0) gm/dl Hct (35-47) % MCV (78-100) fl MCH (26-32) pg MCHC (32-36) g/dl RDW (11.5-14.0) % Plt Count (150-450) K/mm3 MPV (6-9.5) fl Segmented Neutrophils (36.0-66.0) % Lymphocytes (Manual) (24-44) % Monocytes (Manual) (0.0-12.0) % Differential Comment Platelet Estimate (NORMAL) Sodium (136-145) mEq/L Potassium (3.5-5.1) mEq/L Chloride (98-107) mEq/L Carbon Dioxide (21-32) mEq/L Anion Gap (5-15) MEQ/L BUN (9-20) mg/dL Creatinine (0.55-1.30) mg/dl Estimated GFR ML/MIN Glucose (70-110) MG/DL Calcium (8.5-10.1) mg/dL Total Bilirubin (0.2-1.0) mg/dL AST (15-37) U/L ALT (12-78) U/L Alkaline Phosphatase (46-116) U/L Serum Total Protein (6.4-8.2) gm/dL Albumin (3.4-5.0) g/dL Amylase (25-115) U/L Ur Collection Type VOID Urine Color DARK YELLOW (YELLOW) Urine Appearance CLOUDY (CLEAR) Urine pH 9.5 (5-6) Ur Specific [place] 1.020 (1.005-1.025) Urine Protein >=300 (Negative) Urine Glucose (UA) NEGATIVE (NEGATIVE) mg/dL Urine Ketones MODERATE-40 (NEGATIVE) Urine Nitrite NEGATIVE (NEGATIVE) Urine Bilirubin SMALL (NEGATIVE) Urine Urobilinogen 1 (0-1) mg/dL Urine WBC (Auto) NEGATIVE (NEGATIVE) Urine RBC (Auto) NEGATIVE (0-5) Percy/ul Urine Microscopic RBC 0-2 (0-2) /HPF Urine Microscopic WBC 2-5 (0-5) /HPF Ur Epithelial Cells MANY (FEW) /HPF Urine Bacteria MODERATE (NEGATIVE) /HPF Hyaline Casts 2-5 (0-2) /LPF Urine Mucus MANY (NEGATIVE) /HPF Urine HCG, Qual NEGATIVE (Negative) Urine Opiates Level NEG. (NEGATIVE) Ur Methadone NEG. (NEGATIVE) Urine Barbiturates NEG. (NEGATIVE) Ur Phencyclidine (PCP) NEG. (NEGATIVE) Urine Amphetamine POS. (NEGATIVE) U Benzodiazepine Level NEG. (NEGATIVE) Urine Cocaine NEG. (NEGATIVE) Urine Marijuana (THC) POS. (NEGATIVE) Urine Ethyl Alcohol (0.00-20) mg/dl Specimen Received 11/24/16 0730 11/24/16 11/24/16 11/24/16 Range/Units 07:59 07:30 07:30 WBC 10.5 (4.0-10.5) K/mm3 RBC 4.28 (4.1-5.4) M/mm3 Hgb 13.9 (12.0-16.0) gm/dl Hct 40.5 (35-47) % MCV 94.6 (78-100) fl MCH 32.5 H (26-32) pg MCHC 34.3 (32-36) g/dl RDW 13.3 (11.5-14.0) % Plt Count 108 L (150-450) K/mm3 MPV 11.3 H (6-9.5) fl Segmented Neutrophils 90 H (36.0-66.0) % Lymphocytes (Manual) 4 L (24-44) % Monocytes (Manual) 6 (0.0-12.0) % Differential Comment NORMAL Platelet Estimate DECREASED (NORMAL) Sodium 134 L (136-145) mEq/L Potassium 3.3 L (3.5-5.1) mEq/L Chloride 95 L (98-107) mEq/L Carbon Dioxide 25.0 (21-32) mEq/L Anion Gap 17.3 H (5-15) MEQ/L BUN 8 L (9-20) mg/dL Creatinine 0.78 (0.55-1.30) mg/dl Estimated GFR > 60 ML/MIN Glucose 131 H (70-110) MG/DL Calcium 10.1 (8.5-10.1) mg/dL Total Bilirubin 1.9 H (0.2-1.0) mg/dL AST 56 H (15-37) U/L ALT 53 (12-78) U/L Alkaline Phosphatase 109 (46-116) U/L Serum Total Protein 8.6 H (6.4-8.2) gm/dL Albumin 4.3 (3.4-5.0) g/dL Amylase 27 (25-115) U/L Ur Collection Type Urine Color (YELLOW) Urine Appearance (CLEAR) Urine pH TNP (5-6) Ur Specific [place] (1.005-1.025) Urine Protein (Negative) Urine Glucose (UA) (NEGATIVE) mg/dL Urine Ketones (NEGATIVE) Urine Nitrite (NEGATIVE) Urine Bilirubin (NEGATIVE) Urine Urobilinogen (0-1) mg/dL Urine WBC (Auto) (NEGATIVE) Urine RBC (Auto) (0-5) Percy/ul Urine Microscopic RBC (0-2) /HPF Urine Microscopic WBC (0-5) /HPF Ur Epithelial Cells (FEW) /HPF Urine Bacteria (NEGATIVE) /HPF Hyaline Casts (0-2) /LPF Urine Mucus (NEGATIVE) /HPF Urine HCG, Qual (Negative) Urine Opiates Level (NEGATIVE) Ur Methadone (NEGATIVE) Urine Barbiturates (NEGATIVE) Ur Phencyclidine (PCP) (NEGATIVE) Urine Amphetamine (NEGATIVE) U Benzodiazepine Level (NEGATIVE) Urine Cocaine (NEGATIVE) Urine Marijuana (THC) (NEGATIVE) Urine Ethyl Alcohol 4 (0.00-20) mg/dl Specimen Received - Progress Progress Note: 11/24/16 09:25 PATIENT GIVEN NORMAL SALINE IV 1LITER/HR, ATIVAN 2MG, LIBRIUM 50MG ORALLY Discussed with : Dilia Will see patient in: hospital (observation) (AT 0900 FOR ADMISSION) - Departure Time of Disposition: 09:30 Departure Disposition: Observation Clinical Impression: ALCOHOL WITHDRAWAL, POLYSUBSTANCE ABUSE Condition: Stable Critical Care Time: No Referrals: ANYA GARCÍA [Primary Care Provider] -
[2016-11-24] MEDS ORDERED: Sodium Chloride 0.9% 1000 ML 1,000 ML ONE (08:09)
[2016-11-24 08:10] LABS: COMPLETE URINE MICROSCOPIC? YES; Ph 9.5 (5-6)
[2016-11-24 08:14] LABS: ALBUMIN 4.3 g/dL (3.4-5.0); ALKALINE PHOSPHATASE 109 U/L (46-116); ANION GAP 17.3 MEQ/L (5-15); BILIRUBIN,TOTAL 1.9 mg/dL (0.2-1.0); BLOOD UREA NITROGEN 8 mg/dL (9-20); CHLORIDE 95 mEq/L (98-107); Glucose 131 MG/DL (70-110); Potassium 3.3 mEq/L (3.5-5.1); SGOT/AST 56 U/L (15-37); SGPT/ALT 53 U/L (12-78); SODIUM 134 mEq/L (136-145); Total Protein 8.6 gm/dL (6.4-8.2)
[2016-11-24 08:20] LABS: Mean Cell Volume 94.6 fl (78-100); Mean Corpuscular Hemoglobin 32.5 pg (26-32); Mean Platelet Volume 11.3 fl (6-9.5); Platelet Count 108 K/mm3 (150-450); Red Blood Count 4.28 M/mm3 (4.1-5.4); Red Cell Distribution Width 13.3 % (11.5-14.0); White Blood Count 10.5 K/mm3 (4.0-10.5)
[2016-11-24 08:25] LABS: Bacteria MODERATE /HPF (NEGATIVE); Epithelial Cells MANY /HPF (FEW); Mucus MANY /HPF (NEGATIVE)
[2016-11-24] MEDS ORDERED: LIBRIUM 25 MG PO ONE (08:53)
[2016-11-24] MEDS ORDERED: Ativan 2 MG/1 ML VIAL IV ONE (08:54)
[2016-11-24] MEDS ORDERED: Ativan 2 MG/1 ML VIAL ONE (08:57)
[2016-11-24 09:02] LABS: Total Cells Counted 100
[2016-11-24 09:05] LABS: Platelet Estimate DECREASED (NORMAL)
[2016-11-24] MEDS ORDERED: Zofran 4 MG/2 ML VIAL IV PRN (09:33)
[2016-11-24] MEDS ORDERED: Ativan 2 MG/1 ML VIAL IV PRN (09:51)
[2016-11-24] MEDS ORDERED: PHENERGAN 25 MG PO PRN (09:51)
[2016-11-24] MEDS ORDERED: Phenergan 25 MG INJ IVIM PRN (09:51)
[2016-11-24] MEDS: VITAMIN B-1 100 MG PO SCH (10:59)
[2016-11-24] MEDS: Ativan 2 MG/1 ML VIAL IV PRN ×5 (11:00→14:55)
[2016-11-24] MEDS: THERAGRAN MULTIVITAMIN PO SCH (11:00)
[2016-11-24] MEDS: PROTONIX 40 MG IV IV SCH (11:00)
[2016-11-24] MEDS: Sodium Chloride 0.9% W/ 20 mEq KCl/LITER 1,000 ML IV SCH ×2 (11:00→20:59)
[2016-11-24] MEDS: FOLATE 1 MG PO SCH (11:00)
[2016-11-24] MEDS: NEURONTIN 300 MG PO SCH ×2 (14:57→22:10)
[2016-11-24] MEDS: Geodon 20 MG INJ IM PRN (15:26)
--- NOTE | 2016-11-24 19:52 | PCM.HP ---
History of Present Illness - Chief Complaint Chief Complaint: Drug intoxication Date: 11/24/16 History of Present Illness: is a 26 year old female. with history of alcohol abuse and polysubstance abuse. She was recently admitted for alcohol detoxification and this was successful. According to her mother she went home for 3 days and did well but then her grandfather who she lived with and she began drinking heavily again. She also started using other substances as well and the mother reports that Dorota was using methamphetamine with her and possibly some other substances such as "home made acid". Dorota reported she was unsure what it was she took. Since then she has been having severe hallucinations auditory and visual and paranoia and has been combative at times. She did required IM sedation with Geodon as the Ativan was not helping. She reportedly was drinking alcohol as well prior to her arrival. Dorota is now sedated and unable to provide the history. Medications & Allergies Home Medications: Home Medication List No Reportable Medications [No Reported Medications] 11/24/16 [History Confirmed 11/24/16] Allergies/Adverse Reactions: Allergies Allergy/AdvReac Type Severity Reaction Status Date / Time amphetamine aspartate Allergy Verified 11/24/16 10:40 [From Adderall] amphetamine sulfate Allergy Verified 11/24/16 10:40 [From Adderall] dextroamphetamine saccharate Allergy Verified 11/24/16 10:40 [From Adderall] dextroamphetamine sulfate Allergy Verified 11/24/16 10:40 [From Adderall] - Past Medical History Past Medical History: Yes Neurological History: No Pertinent History ENT History: No Pertinent History Cardiac History: No Pertinent History Respiratory History: No Pertinent History Endocrine Medical History: Hypoglycemia Musculoskelatal History: No Pertinent History GI Medical History: No Pertinent History History: No Pertinent History Pyscho-Social History: Anxiety, Depression Reproductive Disorders: No Pertinent History Comment: swollen liver - Female History Hx Last Menstrual Period: 11/01/16 Are you now?: No - Past Surgical History Past Surgical History: Yes Neuro Surgical History: No Pertinent History Cardiac History: No Pertinent History Respiratory Surgery: No Pertinent History GI Surgical History: No Pertinent History Genitourinary Surgical Hx: No Pertinent History Musculskeletal Surgical Hx: No Pertinent History Female Surgical History: Section - Social History Smoking Status: Current every day smoker How long have you smoked: 12 yrs Exposure to second hand smoke: Yes Alcohol: Heavy, Daily Drug Use: marijuana, methamphetamines, other - Physical Exam Vital Signs: Vital Signs - 24 hr Temp Pulse Resp BP Pulse Ox 11/24/16 17:33 126 H 22 116/76 96 11/24/16 14:00 145 H 24 150/104 98 11/24/16 12:19 98.8 F 116 H 22 154/100 98 11/24/16 10:02 99.1 F 108 H 18 145/100 99 11/24/16 09:34 99 11/24/16 09:20 108 H 16 146/107 98 11/24/16 08:22 121 H 22 100 11/24/16 07:59 99 11/24/16 07:28 97.2 F 143 H 16 149/107 99 General Appearance: no apparent distress Neurologic Exam: No motor deficits Eye Exam: PERRL/EOMI, eyes nml inspection Ears, Nose, Throat Exam: normal ENT inspection, TMs normal, pharynx normal, moist mucous membranes Neck Exam: normal inspection, non-tender, supple, full range of motion Respiratory Exam: normal breath sounds, lungs clear, No respiratory distress Cardiovascular Exam: regular rate/rhythm, normal heart sounds, normal peripheral pulses Gastrointestinal/Abdomen Exam: soft, normal bowel sounds, No tenderness, No mass Back Exam: normal inspection, normal range of motion, No CVA tenderness, No vertebral tenderness Extremity Exam: normal inspection, normal range of motion, pelvis stable Skin Exam: normal color, warm, dry, No rash Lymphatic Exam: No adenopathy Results - Other Procedures and Tests Respiratory Therapy 11/24/16 10:33 Smoking Cessation Education ONCE Assessment/Plan (1) Amphetamine abuse Current Visit: Yes Status: Acute Assessment & Plan: will continue with observation in ICU with iv sedation with ativan with her delirium and hallucinations this was controlled with IM Geodon monitor for alcohol withdrawal as well on CIWA protocol continue IV fluids. Code(s): F15.10 - OTHER STIMULANT ABUSE, UNCOMPLICATED (2) Drug-induced psychotic disorder Current Visit: Yes Status: Acute Qualifiers: Complication of substance-induced condition: with hallucinations Qualified Code(s): F19.951 - Other psychoactive substance use, unspecified with psychoactive substance-induced psychotic disorder with hallucinations Code(s): F19.959 - OTH PSYCHOACTV SUBSTANCE USE, UNSP W PSYCH DISORDER, UNSP (3) Alcohol withdrawal Current Visit: Yes Status: Acute Qualifiers: Code(s): F10.239 - ALCOHOL DEPENDENCE WITH WITHDRAWAL, UNSPECIFIED
[2016-11-25] MEDS: Geodon 20 MG INJ IM PRN ×2 (01:08→22:41)
[2016-11-25] MEDS: Sodium Chloride 0.9% W/ 20 mEq KCl/LITER 1,000 ML IV SCH ×2 (06:29→14:54)
[2016-11-25] MEDS: PROTONIX 40 MG IV IV SCH (09:57)
[2016-11-25] MEDS: NEURONTIN 300 MG PO SCH ×3 (09:57→21:29)
[2016-11-25] MEDS: THERAGRAN MULTIVITAMIN PO SCH (09:57)
[2016-11-25] MEDS: FOLATE 1 MG PO SCH (09:57)
[2016-11-25] MEDS: VITAMIN B-1 100 MG PO SCH (09:57)
[2016-11-25] MEDS: Ativan 2 MG/1 ML VIAL IV PRN ×3 (13:24→22:18)
--- NOTE | 2016-11-25 17:41 | PCM.NOTE ---
Date and Time: 11/25/161736 Subjective Assessment: still having auditory hallucinations intermittently but overall improved after the sleeping last night. no new symptoms. she does admitted to inhaling nasally an unknown substance that she thought was crushed up adderall but she is unsure what it actually was. She also admits to drinking very heavily in the night prior to this and has been drinking about half a 1/5th of liquor every other day for the last several weeks. She did not go for her outpatient [facility] f/u after last discharge. She is motivated to quit drinking and is planning to move in with her mother to help facilitate this. - Review of Systems Constitutional: Fatigue, No Chills, No Weakness Ears, Nose, & Throat: No Sinus Drainage, No Loose Teeth, No Throat Pain, No Painful Swallowing Respiratory: No Cough, No Short Of Breath Cardiac: No Chest Pain, No Palpitations Abdominal/Gastrointestinal: No Abdominal Pain, No Nausea, No Vomiting Genitourinary Symptoms: No Dysuria, No Frequency Musculoskeletal: No Back Pain Objective Exam General Appearance: no apparent distress, alert Neurologic Exam: alert, oriented x 3, cooperative, normal mood/affect, nml cerebellar function, sensation nml, No motor deficits Skin Exam: normal color, warm, dry Eye Exam: PERRL, EOMI, eyes nml inspection Ears, Nose, Throat Exam: normal ENT inspection, pharynx normal, moist mucous membranes Neck Exam: normal inspection, non-tender, supple, full range of motion Respiratory Exam: normal breath sounds, lungs clear, No respiratory distress Cardiovascular Exam: regular rate/rhythm, normal heart sounds Gastrointestinal/Abdomen Exam: soft, No tenderness, No mass Extremity Exam: normal inspection, normal range of motion Back Exam: normal inspection, normal range of motion, No CVA tenderness, No vertebral tenderness Pelvic Exam: deferred Rectal Exam: deferred OBJECTIVE DATA Vital Signs: Vital Signs - 24 hr Temp Pulse Resp BP Pulse Ox 11/25/16 16:00 99.6 F 96 H 18 140/115 99 11/25/16 13:58 16 11/25/16 12:00 98.5 F 86 16 144/100 96 11/25/16 10:00 16 11/25/16 08:00 97.9 F 110 H 16 141/99 98 11/25/16 06:00 116 H 24 121/87 94 L 11/25/16 02:00 121 H 22 109/74 98 11/24/16 22:00 99.0 F 124 H 22 121/86 97 Oxygen-Last 24 hours O2 Percentage 2 Liters = 28% O2 Percentage 2 Liters = 28% Pain Assessment - Last Documented Pain Intensity 0 Pain Scale Used 0-10 Pain Scale Intake and Output: Intake & Output 11/23/16 11/24/16 11/25/16 11/26/16 11:59 11:59 11:59 11:59 Intake Total 3058 300 Output Total 540 Balance 2518 300 Weight 62.369 kg 62.369 kg Assessment/Plan (1) Amphetamine abuse Current Visit: Yes Status: Acute Code(s): F15.10 - OTHER STIMULANT ABUSE, UNCOMPLICATED (2) Drug-induced psychotic disorder Current Visit: Yes Status: Acute Qualifiers: Complication of substance-induced condition: with hallucinations Qualified Code(s): F19.951 - Other psychoactive substance use, unspecified with psychoactive substance-induced psychotic disorder with hallucinations Assessment & Plan: still with auditory hallucinations continue geodon prn severe symptoms monitor for alcohol withdraw continue CIWA protocol [facility] consult Code(s): F19.959 - OTH PSYCHOACTV SUBSTANCE USE, UNSP W PSYCH DISORDER, UNSP (3) Alcohol withdrawal Current Visit: Yes Status: Acute Qualifiers: Code(s): F10.239 - ALCOHOL DEPENDENCE WITH WITHDRAWAL, UNSPECIFIED
[2016-11-25] MEDS ORDERED: Nicoderm CQ 21 MG TOP SCH (18:45)
[2016-11-25] MEDS: Ativan 1 MG PO PRN (21:31)
[2016-11-26] MEDS: Sodium Chloride 0.9% W/ 20 mEq KCl/LITER 1,000 ML IV SCH ×3 (00:52→21:59)
[2016-11-26] MEDS: NEURONTIN 300 MG PO SCH ×2 (09:14→15:01)
[2016-11-26] MEDS: VITAMIN B-1 100 MG PO SCH (09:14)
[2016-11-26] MEDS: THERAGRAN MULTIVITAMIN PO SCH (09:14)
[2016-11-26] MEDS: PROTONIX 40 MG IV IV SCH (09:14)
[2016-11-26] MEDS: FOLATE 1 MG PO SCH (09:14)
[2016-11-26] MEDS: Ativan 1 MG PO PRN ×2 (12:16→21:07)
[2016-11-26] MEDS: Ativan 2 MG/1 ML VIAL IV PRN ×2 (13:01→22:09)
[2016-11-26] MEDS: Seroquel 25 MG PO SCH ×2 (13:40→21:07)
[2016-11-26 14:43] LABS: BASOPHIL % 0.6 % (0.0-0.4); Eosinophil % 2.7 % (0.00-5.0); Granulocytes % 67.5 % (36.0-66.0); Lymphocytes % 18.2 % (24.0-44.0); Mean Cell Volume 100.3 fl (78-100); Mean Corpuscular Hemoglobin 32.4 pg (26-32); Platelet Count 107 K/mm3 (150-450); Red Blood Count 3.73 M/mm3 (4.1-5.4); White Blood Count 4.8 K/mm3 (4.0-10.5)
[2016-11-26 14:48] LABS: ALBUMIN 3.4 g/dL (3.4-5.0); ALKALINE PHOSPHATASE 107 U/L (46-116); ANION GAP 14.6 MEQ/L (5-15); BILIRUBIN,TOTAL 0.6 mg/dL (0.2-1.0); BLOOD UREA NITROGEN 6 mg/dL (9-20); CHLORIDE 105 mEq/L (98-107); Glucose 109 MG/DL (70-110); SGOT/AST 121 U/L (15-37); SGPT/ALT 75 U/L (12-78); SODIUM 139 mEq/L (136-145); Total Protein 7.6 gm/dL (6.4-8.2)
--- NOTE | 2016-11-26 17:42 | PCM.NOTE ---
Date and Time: 11/26/161736 Subjective Assessment: still hallucinating today visually and auditory. Seeing demands at times hiding from them in her room. She states she did talk with her dad (who is ) in her room she knows he is but he told her to stay in the hospital otherwise the demons would get her. She currently sees them in the room in several different spots she states and points them out to me. She is feeling some coolness in her chest and cramping pains in her abdomen. security did have to be called last night do to the severity of the hallucinations and her aggressiveness. Objective Exam General Appearance: mild distress Neurologic Exam: oriented x 3, confusion, agitation Skin Exam: warm, dry Eye Exam: No scleral icterus, No pale conjunctivae Ears, Nose, Throat Exam: moist mucous membranes Neck Exam: non-tender, supple Respiratory Exam: normal breath sounds, lungs clear Cardiovascular Exam: regular rate/rhythm, normal heart sounds, No edema Gastrointestinal/Abdomen Exam: soft, normal bowel sounds, No tenderness, No distention Extremity Exam: normal inspection, No calf tenderness, No pedal edema OBJECTIVE DATA Vital Signs: Vital Signs - 24 hr Temp Pulse Resp BP Pulse Ox 11/26/16 16:00 98.2 F 123 H 19 128/92 98 11/26/16 12:00 99.3 F 83 19 169/101 100 11/26/16 07:50 98.4 F 81 19 130/90 99 11/26/16 06:00 22 11/26/16 04:00 97.8 F 148 H 27 H 97 11/26/16 02:00 26 H 11/26/16 00:00 115 H 26 H 11/25/16 22:00 22 11/25/16 20:00 99.8 F 109 H 22 131/104 100 11/25/16 18:00 16 Pain Assessment - Last Documented Pain Intensity 0 Pain Scale Used 0-10 Pain Scale Intake and Output: Intake & Output 11/24/16 11/25/16 11/26/16 11/27/16 11:59 11:59 11:59 11:59 Intake Total 3058 2445 Output Total 540 Balance 2518 2445 Weight 62.369 kg 62.369 kg Lab Results: Lab Results-Last 24 Hours 11/26/16 11/26/16 11/26/16 Range/Units 14:00 14:00 14:00 WBC 4.8 (4.0-10.5) K/mm3 RBC 3.73 L (4.1-5.4) M/mm3 Hgb 12.1 (12.0-16.0) gm/dl Hct 37.4 (35-47) % MCV 100.3 H (78-100) fl MCH 32.4 H (26-32) pg MCHC 32.4 (32-36) g/dl RDW 13.0 (11.5-14.0) % Plt Count 107 L (150-450) K/mm3 MPV 11.0 H (6-9.5) fl Gran % 67.5 H (36.0-66.0) % Lymphocytes % 18.2 L (24.0-44.0) % Monocytes % 11.0 (0.0-12.0) % Eosinophils % 2.7 (0.00-5.0) % Basophils % 0.6 (0.0-0.4) % Basophils # 0.03 (0-0.4) Sodium 139 (136-145) mEq/L Potassium 4.0 (3.5-5.1) mEq/L Chloride 105 (98-107) mEq/L Carbon Dioxide 23.0 (21-32) mEq/L Anion Gap 14.6 (5-15) MEQ/L BUN 6 L (9-20) mg/dL Creatinine 0.68 (0.55-1.30) mg/dl Estimated GFR > 60 ML/MIN Glucose 109 (70-110) MG/DL Calcium 8.9 (8.5-10.1) mg/dL Total Bilirubin 0.6 (0.2-1.0) mg/dL AST 121 H (15-37) U/L ALT 75 (12-78) U/L Alkaline Phosphatase 107 (46-116) U/L Ammonia 23 (11-32) MMOL/l Serum Total Protein 7.6 (6.4-8.2) gm/dL Albumin 3.4 (3.4-5.0) g/dL Assessment/Plan (1) Amphetamine abuse Current Visit: Yes Status: Acute Assessment & Plan: still with severe psychosis [facility] was consulted and recommended outpatient follow up but obviously at this point she is a danger to herself with her acute pscychosis. she likely has contributing alcohol withdrawal and will continue the CIWA protocol she tolerated the ativan CIWA protocol well previously on a previous hospitalization. Code(s): F15.10 - OTHER STIMULANT ABUSE, UNCOMPLICATED (2) Drug-induced psychotic disorder Current Visit: Yes Status: Acute Qualifiers: Complication of substance-induced condition: with hallucinations Qualified Code(s): F19.951 - Other psychoactive substance use, unspecified with psychoactive substance-induced psychotic disorder with hallucinations Code(s): F19.959 - OTH PSYCHOACTV SUBSTANCE USE, UNSP W PSYCH DISORDER, UNSP (3) Alcohol withdrawal Current Visit: Yes Status: Acute Qualifiers: Complication of substance-induced condition: with delirium Code(s): F10.239 - ALCOHOL DEPENDENCE WITH WITHDRAWAL, UNSPECIFIED
[2016-11-26] MEDS ORDERED: Nicoderm CQ 21 MG TOP SCH (19:00)
[2016-11-26] MEDS ORDERED: TYLENOL 325 MG PO PRN (19:56)
[2016-11-27] MEDS: PROTONIX 40 MG IV IV SCH (09:28)
[2016-11-27] MEDS: THERAGRAN MULTIVITAMIN PO SCH (09:28)
[2016-11-27] MEDS: FOLATE 1 MG PO SCH (09:28)
[2016-11-27] MEDS: VITAMIN B-1 100 MG PO SCH (09:28)
[2016-11-27 16:33] VITALS: BP 128/80; PULSE 78; O2SAT 100
--- NOTE | 2016-11-27 17:30 | PCM.DCORD ---
- Discharge Discharge Date: 11/27/16 Disposition: Home, Self-Care Condition: Stable Prescriptions: No Action No Reportable Medications [No Reported Medications] Instructions: Alcohol Abuse and Alcoholism, Drug Abuse and Drug Addiction, Quit Smoking Follow up with: ANYA GARCÍA [Primary Care Provider] - Call for Appointment Forms: Discharge Instructions
--- NOTE | 2016-11-28 07:50 | PCM.DS ---
Discharge Summary Date of Admission: 11/24/16 09:40 Date of Discharge: 11/27/16 Admitting Physician: ANYA GARCÍA Primary Care Provider: ANYA GARCÍA Allergies Allergies amphetamine aspartate [From Adderall] Allergy (Verified 11/24/16 10:40) amphetamine sulfate [From Adderall] Allergy (Verified 11/24/16 10:40) dextroamphetamine saccharate [From Adderall] Allergy (Verified 11/24/16 10:40) dextroamphetamine sulfate [From Adderall] Allergy (Verified 11/24/16 10:40) Hospital Summary - Hospital Course Hospital Course: Dorota has a history of alcohol abuse and was recently detoxed in the hospital and was sober for 3 days prior to relapse after her grandfather she lived with . She has been drinking heavily about half a 1/5 of liquor per day and was drinking very heavily the night of presentation and also snorted a powdered substance she thought was a crushed up adderall but was unsure what it actually was and one report called it "home made acid" also possibly. She then began having severe hallucinations auditory and visual. She was very anxious. She was brought to the ED. She was treated with Geodon with some help as well as Ativan on the [facility] protocol. SHe continued to have very vivid hallucinations. SHe was changed to po seroquel for 1 day and this helped some. She was delusional at times as well. She states her father was in the room and told her it was ok to stay in the hospital. She was seeing demons in the room with glowing eyes and they were sending creatures flying over her to torment her. She was at times hiding in the room in corners. Security did have to be called at times she did have to get IM brad that helped. She then slept well finally the night prior to admission and woke in the am with no hallucinations. She was tired but thinking clearly. She understood the hallucinations were not real but she is still scared of them. She was observed the day of discharge and did not require any ativan or antipsychotic for nearly 24h and was responding appropriately and had some mild tremors only from the alcohol withdraw. She was eating well and was discharged home with her mother who she will be moving in with to help continue with her recovery from alcoholism. SHe was seen for consult by [facility] and she has there information and plans to attend outpatient follow up. She denied any thoughts of hurting herself or others. - Vitals & Intake/Output Vital Signs: Vital Signs Temperature 97.6 F 11/27/16 16:31 Pulse Rate 78 11/27/16 16:31 Respiratory Rate 18 11/27/16 16:31 Blood Pressure 128/80 11/27/16 16:31 O2 Sat by Pulse Oximetry 100 11/27/16 16:31 Oxygen-Last Documented O2 Percentage 2 Liters = 28% Intake & Output: Intake & Output 11/25/16 11/26/16 11/27/16 11/28/16 11:59 11:59 11:59 11:59 Intake Total 3058 2445 880 600 Output Total 540 Balance 2518 2445 880 600 Weight 62.369 kg 62.369 kg - Lab Result Diagrams: 11/26/16 14:00 11/26/16 14:00 Discharge Exam General Appearance: no apparent distress, alert Neurologic Exam: alert, oriented x 3, cooperative, normal mood/affect, nml cerebellar function, sensation nml, No motor deficits Skin Exam: normal color, warm, dry Eye Exam: PERRL, EOMI, eyes nml inspection Ears, Nose, Throat Exam: normal ENT inspection, pharynx normal, moist mucous membranes Neck Exam: normal inspection, non-tender, supple, full range of motion Respiratory Exam: normal breath sounds, lungs clear, No respiratory distress Cardiovascular Exam: regular rate/rhythm, normal heart sounds Gastrointestinal/Abdomen Exam: soft, No tenderness, No mass Extremity Exam: normal inspection, normal range of motion Back Exam: normal inspection, normal range of motion, No CVA tenderness, No vertebral tenderness Pelvic Exam: deferred Rectal Exam: deferred Final Diagnosis/Problem List - Final Discharge Diagnosis/Problem (1) Amphetamine abuse Status: Acute (2) Drug-induced psychotic disorder Status: Resolved (3) Alcohol withdrawal Status: Resolved (4) Alcohol dependence Status: Acute - Discharge Disposition: Home, Self-Care Condition: Stable Prescriptions: Continue No Reportable Medications [No Reported Medications] Instructions: Alcohol Abuse and Alcoholism, Drug Abuse and Drug Addiction, Quit Smoking Follow up with: ANYA GARCÍA [Primary Care Provider] - Call for Appointment Forms: Discharge Instructions
== END 2016-11-27 18:15 | disposition home or self-care (01) ==
LOC: ED 07:24 → ICU 09:40 → MED SURG 11-25 22:00
PROVIDERS: ADMIT Family Medicine; ATTEND Family Medicine
DX: F10.239 Alcohol dependence with withdrawal, unspecified (principal); F10.20 Alcohol dependence, uncomplicated; F41.8 Other specified anxiety disorders; F12.90 Cannabis use, unspecified, uncomplicated; F15.10 Other stimulant abuse, uncomplicated; F19.959 Other psychoactive substance use, unspecified with psychoactive substance-induced psychotic disorder, unspecified
CPT/HCPCS: 36000; 36415; 80053; 80307; 80320; 81000; 82140; 82150; 82962; 84703; 85025; 90791; 93005; 96360; 96374; 99285; G0378; J2060; J3486; Q3014; A9270-GY

== ENCOUNTER 2017-04-30 12:53 | Emergency (ER) | payer OTHER ==
--- NOTE | 2017-04-30 13:10 | ERPHSYRPT ---
- History of Present Illness Time Seen by Provider: 04/30/17 13:07 Source: patient Exam Limitations: no limitations Physician History: 26 y/o female comes to the ER with complaints of hematuria since yesterday. Pt says that she has been urinating more frequently but denies any back pain, fever , chills, or dysuria. Pt does admit to having some lower abdominal cramping. Pt does admit to having a sore throat about 2 weeks ago. Timing/Duration: yesterday Activites at Onset: none Quality: aching Onset Location: suprapubic, abdominal pain Severity of Pain-Max: mild Severity of Pain-Current: mild Allergies/Adverse Reactions: amphetamine aspartate [From Adderall] Allergy (Verified 04/30/17 13:29) amphetamine sulfate [From Adderall] Allergy (Verified 04/30/17 13:29) dextroamphetamine saccharate [From Adderall] Allergy (Verified 04/30/17 13:29) dextroamphetamine sulfate [From Adderall] Allergy (Verified 04/30/17 13:29) Home Medications: No Reportable Medications [No Reported Medications] 11/24/16 [History] Hx Tetanus, Diphtheria Vaccination/Date Given: No Hx Influenza Vaccination/Date Given: No Hx Pneumococcal Vaccination/Date Given: No - Review of Systems Constitutional: No Fever, No Chills Eyes: No Symptoms Ears, Nose, & Throat: No Symptoms, Throat Pain Respiratory: No Cough, No Dyspnea Cardiac: No Chest Pain, No Edema, No Syncope Abdominal/Gastrointestinal: Abdominal Pain, No Nausea, No Vomiting, No Diarrhea Genitourinary Symptoms: Frequency, Hematuria, No Dysuria Musculoskeletal: No Back Pain, No Neck Pain Skin: No Rash Neurological: No Dizziness, No Focal Weakness, No Sensory Changes Psychological: No Symptoms Endocrine: No Symptoms All Other Systems: Reviewed and Negative - Past Medical History Pertinent Past Medical History: Yes Neurological History: No Pertinent History ENT History: No Pertinent History Cardiac History: No Pertinent History Respiratory History: No Pertinent History Endocrine Medical History: Hypoglycemia Musculoskeletal History: No Pertinent History GI Medical History: No Pertinent History History: No Pertinent History Psycho-Social History: Anxiety, Depression Female Reproductive Disorders: No Pertinent History Other Medical History: swollen liver - Past Surgical History Past Surgical History: Yes Neuro Surgical History: No Pertinent History Cardiac: No Pertinent History Respiratory: No Pertinent History Gastrointestinal: No Pertinent History Genitourinary: No Pertinent History Musculoskeletal: No Pertinent History Female Surgical History: Section - Social History Smoking Status: Current every day smoker How long have you smoked: 12 yrs Exposure to second hand smoke: Yes Drug Use: marijuana, methamphetamines, other Patient Lives Alone: No - Female History Hx Now: No - Nursing Vital Signs Nursing Vital Signs: Initial Vital Signs Temperature 98.8 F 04/30/17 13:13 Pulse Rate 97 H 04/30/17 13:13 Respiratory Rate 18 04/30/17 13:13 Blood Pressure 128/59 04/30/17 13:13 O2 Sat by Pulse Oximetry 97 04/30/17 13:13 Pain Scale Pain Intensity 0 - Physical Exam General Appearance: no apparent distress, alert Eye Exam: PERRL/EOMI, eyes nml inspection Ears, Nose, Throat Exam: normal ENT inspection, TMs normal, pharynx normal, moist mucous membranes Neck Exam: normal inspection, non-tender, supple, full range of motion Respiratory Exam: normal breath sounds, lungs clear, No respiratory distress Cardiovascular Exam: regular rate/rhythm, normal heart sounds, normal peripheral pulses Gastrointestinal/Abdomen Exam: soft, normal bowel sounds, No tenderness, No mass Back Exam: normal inspection, normal range of motion, No CVA tenderness, No vertebral tenderness Extremity Exam: normal inspection, normal range of motion, pelvis stable Neurologic Exam: alert, oriented x 3, cooperative, engineer assistant II-XII nml as tested, normal mood/affect, sensation nml, No motor deficits Skin Exam: normal color, warm, dry Lymphatic Exam: No adenopathy SpO2 Interpretation: normal - Course Nursing assessment & vital signs reviewed: Yes Ordered Tests: Active Orders 24 hr Category Date Time Status Clean Catch Urine Specimen STAT Care 04/30/17 13:07 Active CBC W DIFF Stat Lab 04/30/17 14:03 Completed CMP Stat Lab 04/30/17 14:03 Completed HCG,QUALITATIVE URINE Stat Lab 04/30/17 13:15 Completed PT INR [PROTIME WITH INR] Stat Lab 04/30/17 14:03 Completed PTT Stat Lab 04/30/17 14:03 Completed UA W/ MICROSCOPIC Stat Lab 04/30/17 13:15 Completed Lab/Rad Data: Laboratory Result Diagrams 04/30/17 14:03 04/30/17 14:03 Laboratory Results 08/04/30/17 04/30/17 Range/Units 14:03 14:03 14:03 WBC 4.8 (4.0-10.5) K/mm3 RBC 4.91 (4.1-5.4) M/mm3 Hgb 15.3 (12.0-16.0) gm/dl Hct 46.1 (35-47) % MCV 93.9 (78-100) fl MCH 31.2 (26-32) pg MCHC 33.2 (32-36) g/dl RDW 14.5 H (11.5-14.0) % Plt Count 211 (150-450) K/mm3 MPV 9.9 H (6-9.5) fl Gran % 57.3 (36.0-66.0) % Lymphocytes % 31.1 (24.0-44.0) % Monocytes % 8.5 (0.0-12.0) % Eosinophils % 1.4 (0.00-5.0) % Basophils % 1.7 (0.0-0.4) % Basophils # 0.08 (0-0.4) INR 0.92 (0.8-3.0) APTT 31.2 (25.3-37.0) SECONDS Sodium 141 (136-145) mEq/L Potassium 4.4 (3.5-5.1) mEq/L Chloride 104 (98-107) mEq/L Carbon Dioxide 23.1 (21-32) mEq/L Anion Gap 18.3 H (5-15) MEQ/L BUN 8 L (9-20) mg/dL Creatinine 0.82 (0.55-1.30) mg/dl Estimated GFR > 60 ML/MIN Glucose 91 (70-110) MG/DL Calcium 9.7 (8.5-10.1) mg/dL Total Bilirubin 0.30 (0.2-1.0) mg/dL AST 72 H (15-37) U/L ALT 97 H (12-78) U/L Alkaline Phosphatase 101 (46-116) U/L Serum Total Protein 8.4 H (6.4-8.2) gm/dL Albumin 4.5 (3.4-5.0) g/dL Ur Collection Type Urine Color (YELLOW) Urine Appearance (CLEAR) Urine pH (5-6) Ur Specific [place] (1.005-1.025) Urine Protein (Negative) Urine Ketones (NEGATIVE) Urine Blood (0-5) Percy/ul Urine Nitrite (NEGATIVE) Urine Bilirubin (NEGATIVE) Urine Urobilinogen (0-1) mg/dL Ur Leukocyte Esterase (NEGATIVE) Urine Microscopic RBC (0-2) /HPF Urine Microscopic WBC (0-5) /HPF Ur Epithelial Cells (FEW) /HPF Urine Bacteria (NEGATIVE) /HPF Urine Mucus (NEGATIVE) /HPF Urine Glucose (NEGATIVE) mg/dL Urine HCG, Qual (Negative) Specimen Received 04/30/17 04/30/17 Range/Units 13:15 13:15 WBC (4.0-10.5) K/mm3 RBC (4.1-5.4) M/mm3 Hgb (12.0-16.0) gm/dl Hct (35-47) % MCV (78-100) fl MCH (26-32) pg MCHC (32-36) g/dl RDW (11.5-14.0) % Plt Count (150-450) K/mm3 MPV (6-9.5) fl Gran % (36.0-66.0) % Lymphocytes % (24.0-44.0) % Monocytes % (0.0-12.0) % Eosinophils % (0.00-5.0) % Basophils % (0.0-0.4) % Basophils # (0-0.4) INR (0.8-3.0) APTT (25.3-37.0) SECONDS Sodium (136-145) mEq/L Potassium (3.5-5.1) mEq/L Chloride (98-107) mEq/L Carbon Dioxide (21-32) mEq/L Anion Gap (5-15) MEQ/L BUN (9-20) mg/dL Creatinine (0.55-1.30) mg/dl Estimated GFR ML/MIN Glucose (70-110) MG/DL Calcium (8.5-10.1) mg/dL Total Bilirubin (0.2-1.0) mg/dL AST (15-37) U/L ALT (12-78) U/L Alkaline Phosphatase (46-116) U/L Serum Total Protein (6.4-8.2) gm/dL Albumin (3.4-5.0) g/dL Ur Collection Type CLEAN CATCH Urine Color YELLOW (YELLOW) Urine Appearance CLEAR (CLEAR) Urine pH 5.0 (5-6) Ur Specific [place] 1.015 (1.005-1.025) Urine Protein TRACE (Negative) Urine Ketones NEGATIVE (NEGATIVE) Urine Blood 250 (0-5) Percy/ul Urine Nitrite NEGATIVE (NEGATIVE) Urine Bilirubin NEGATIVE (NEGATIVE) Urine Urobilinogen NORMAL (0-1) mg/dL Ur Leukocyte Esterase NEGATIVE (NEGATIVE) Urine Microscopic RBC 0-2 (0-2) /HPF Urine Microscopic WBC 0-2 (0-5) /HPF Ur Epithelial Cells FEW (FEW) /HPF Urine Bacteria FEW (NEGATIVE) /HPF Urine Mucus SLIGHT (NEGATIVE) /HPF Urine Glucose NEGATIVE (NEGATIVE) mg/dL Urine HCG, Qual NEGATIVE (Negative) Specimen Received 04/30 1300 - Progress Progress: improved Progress Note: 04/30/17 15:11 The U/A does not show a UTI and the blood work does not show any anemia, coagulapathy or renal failure. I spoke to Dr Frankel who has an appointment with Dr García on May 04. - Departure Time of Disposition: 15:12 Departure Disposition: Home Clinical Impression: Hematuria Qualifiers: Hematuria type: unspecified type Qualified Code(s): R31.9 - Hematuria, unspecified Condition: Stable Critical Care Time: No Referrals: ANYA GARCÍA [Primary Care Provider] - Instructions: Hematuria Additional Instructions: Follow up with Dr García next week for a repeat urinalysis and blood work.
[2017-04-30 13:37] LABS: Bilirubin NEGATIVE (NEGATIVE); Blood 250 Ery/ul (0-5); COMPLETE URINE MICROSCOPIC? YES; Collection Type CLEAN CATCH; Glucose NEGATIVE (NEGATIVE); Leukocyte Esterase NEGATIVE (NEGATIVE)
[2017-04-30 13:53] LABS: ADD URINE CULTURE? NO (NO); Bacteria FEW /HPF (NEGATIVE); Epithelial Cells FEW /HPF (FEW); Mucus SLIGHT /HPF (NEGATIVE); WBC 0-2 /HPF (0-5)
[2017-04-30 14:07] LABS: BASOPHIL % 1.7 % (0.0-0.4); Eosinophil % 1.4 % (0.00-5.0); Granulocytes % 57.3 % (36.0-66.0); Lymphocytes % 31.1 % (24.0-44.0); Mean Cell Volume 93.9 fl (78-100); Mean Corpuscular Hemoglobin 31.2 pg (26-32); Mean Platelet Volume 9.9 fl (6-9.5); Monocytes % 8.5 % (0.0-12.0); Platelet Count 211 K/mm3 (150-450); Red Blood Count 4.91 M/mm3 (4.1-5.4); Red Cell Distribution Width 14.5 % (11.5-14.0); White Blood Count 4.8 K/mm3 (4.0-10.5)
[2017-04-30 14:14] VITALS: PULSE 78; O2SAT 98
[2017-04-30 14:40] LABS: INR 0.92 (0.8-3.0); PROTIME 10.4 SECONDS (9.95-12.35)
[2017-04-30 14:43] LABS: PTT 31.2 SECONDS (25.3-37.0)
[2017-04-30 14:49] LABS: ALBUMIN 4.5 g/dL (3.4-5.0); ALKALINE PHOSPHATASE 101 U/L (46-116); ANION GAP 18.3 MEQ/L (5-15); BLOOD UREA NITROGEN 8 mg/dL (9-20); CHLORIDE 104 mEq/L (98-107); Carbon Dioxide 23.1 mEq/L (21-32); Glucose 91 MG/DL (70-110); Potassium 4.4 mEq/L (3.5-5.1); SGOT/AST 72 U/L (15-37); SGPT/ALT 97 U/L (12-78); SODIUM 141 mEq/L (136-145); Total Protein 8.4 gm/dL (6.4-8.2)
[2017-04-30 15:06] VITALS: BP 120/80
== END 2017-04-30 15:22 | disposition home or self-care (01) ==
LOC: ED 12:53
DX: R31.9 Hematuria, unspecified (principal)
CPT/HCPCS: 36415; 80053; 81000; 84703; 85025; 85610; 85730; 99282; 99283

== ENCOUNTER 2017-05-23 23:21 | Emergency (ER) | payer OTHER ==
[2017-05-23] MEDS ORDERED: Adacel Vial IM ONE (23:48)
[2017-05-23] MEDS ORDERED: XYLOCAINE 1%/Epi 1:100000 MDV 20 ML IJ ONE (23:48)
[2017-05-23] MEDS ORDERED: BACIGUENT PACKET TP ONE (23:48)
[2017-05-23] MEDS ORDERED: KEFLEX 500 MG PO ONE (23:49)
[2017-05-24] MEDS ORDERED: KEFLEX 500 MG ONE (00:02)
[2017-05-24] MEDS ORDERED: XYLOCAINE 1% HCL 20 ML MDV ONE (00:02)
[2017-05-24] MEDS ORDERED: BACIGUENT PACKET ONE (00:02)
[2017-05-24] MEDS ORDERED: Adacel Vial IM ONE (00:03)
--- NOTE | 2017-05-24 00:07 | ERPHSYRPT ---
- History of Present Illness Time Seen by Provider: 05/23/17 23:34 Source: patient Exam Limitations: no limitations Patient Subjective Stated Complaint: "i guess our jc try is broke. i leaned over and cut my hand/wrist on it" Triage Nursing Assessment: aox3, breathing easy unlabored, skin pink warm dry, steady gait, lac noted to right hand Physician History: ABOUT 2 HOURS AGO PT CUT HER RIGHT WRIST ON AN JC TRAY; DENIES PREVIOUS INJURY TO THE RIGHT WRIST/HAND; DENIES NUMBNESS OF THE RIGHT HAND DIGITS. LAST TETANUS IS UNKNOWN. Allergies/Adverse Reactions: amphetamine aspartate [From Adderall] Allergy (Verified 04/30/17 13:29) amphetamine sulfate [From Adderall] Allergy (Verified 04/30/17 13:29) dextroamphetamine saccharate [From Adderall] Allergy (Verified 04/30/17 13:29) dextroamphetamine sulfate [From Adderall] Allergy (Verified 04/30/17 13:29) Hx Tetanus, Diphtheria Vaccination/Date Given: No Hx Influenza Vaccination/Date Given: No Hx Pneumococcal Vaccination/Date Given: No - Review of Systems Skin: Other (LACERATION TO RIGHT WRIST) - Past Medical History Pertinent Past Medical History: Yes Neurological History: No Pertinent History ENT History: No Pertinent History Cardiac History: No Pertinent History Respiratory History: No Pertinent History Endocrine Medical History: Hypoglycemia Musculoskeletal History: No Pertinent History GI Medical History: No Pertinent History History: No Pertinent History Psycho-Social History: Anxiety, Depression Female Reproductive Disorders: No Pertinent History Other Medical History: swollen liver - Past Surgical History Past Surgical History: Yes Neuro Surgical History: No Pertinent History Cardiac: No Pertinent History Respiratory: No Pertinent History Gastrointestinal: No Pertinent History Genitourinary: No Pertinent History Musculoskeletal: No Pertinent History Female Surgical History: Section - Social History Smoking Status: Current every day smoker How long have you smoked: 13 Exposure to second hand smoke: Yes Drug Use: marijuana, methamphetamines, other Patient Lives Alone: No - Female History Hx Last Menstrual Period: 05/21/17 Hx Now: No - Nursing Vital Signs Nursing Vital Signs: Initial Vital Signs Temperature 98.7 F 05/23/17 23:23 Pulse Rate 93 H 05/23/17 23:23 Respiratory Rate 14 05/23/17 23:23 Blood Pressure 123/88 05/23/17 23:23 O2 Sat by Pulse Oximetry 97 05/23/17 23:23 Pain Scale Pain Intensity 1 - Physical Exam General Appearance: alert Shoulder Exam: normal ROM Elbow/Forearm Exam: normal ROM Wrist Exam: normal ROM Hand Exam: normal ROM Neuro/Tendon Exam: normal sensation Mental Status Exam: alert, cooperative Skin Exam: laceration (2 CM LACERATION TO FLEXOR ASPECT OF RIGHT WRIST) SpO2 Interpretation: normal SpO2: 97 Oxygen Delivery: Room Air Procedures - Laceration/Wound Repair Right Wrist Wound Location: Right, wrist Wound Length (cm): 2 Wound's Depth, Shape: superficial Wound Explored: clean Irrigated: Yes Hibiclens Prep: Yes Anesthesia: 2% Lidocaine (WITH EPI) Volume Anesthetic (ccs): 1 Wound Repaired With: sutures Suture Size/Type: 4-0, ethilon Number of Sutures: 6 Layer Closure?: No - Course Nursing assessment & vital signs reviewed: Yes Ordered Tests: Active Orders 24 hr Category Date Time Status Prepare for Sutures STAT Care 05/23/17 23:48 Active Sutures STAT Care 05/23/17 23:49 Active Wound Care STAT Care 05/23/17 23:48 Active Medication Summary Discontinued Medications Generic Name Dose Route Start Last Admin Trade Name Freq PRN Reason Stop Dose Admin Bacitracin 0.9 gm 05/23/17 23:48 05/24/17 00:05 Baciguent Packet TP 05/23/17 23:49 1 gm STAT ONE Administration Bacitracin Confirm 05/24/17 00:02 Baciguent Packet Administered 05/24/17 00:03 Dose 1 gm .ROUTE .STK-MED ONE Cephalexin HCl 500 mg 05/23/17 23:49 05/24/17 00:05 Keflex 500 Mg PO 05/23/17 23:50 500 mg STAT ONE Administration Cephalexin HCl Confirm 05/24/17 00:02 Keflex 500 Mg Administered 05/24/17 00:03 Dose 500 mg .ROUTE .STK-MED ONE Diphtheria/Tetanus/Acell Pertussis 0.5 ml 05/23/17 23:48 05/24/17 00:05 Adacel Vial IM 05/23/17 23:49 0.5 ml .ONCE ONE Administration Diphtheria/Tetanus/Acell Pertussis Confirm 05/24/17 00:03 Adacel Vial Administered 05/24/17 00:04 Dose 0.5 ml IM .STK-MED ONE Lidocaine HCl Confirm 05/24/17 00:02 Xylocaine 1% Hcl 20 Ml Mdv Administered 05/24/17 00:03 Dose 1 ml .ROUTE .STK-MED ONE Lidocaine/Epinephrine 5 ml 05/23/17 23:48 05/24/17 00:13 Xylocaine 1%/Epi 1:[id number] Mdv 20 Ml IJ 05/23/17 23:49 Not Given STAT ONE Lidocaine/Epinephrine Confirm 05/24/17 00:10 Xylocaine 2%-Epi 1:100,000 Mdv Administered 05/24/17 00:11 Dose 1 ml IJ .STK-MED ONE Lidocaine/Epinephrine 5 ml 05/24/17 00:11 05/24/17 00:13 Xylocaine 2%/Epi 1:[id number] 20ml Vial Mpf IJ 05/24/17 00:12 Not Given ONCE ONE Lidocaine/Epinephrine 5 ml 05/24/17 00:11 05/24/17 00:14 Xylocaine 2%-Epi 1:100,000 Mdv IJ 05/24/17 00:12 5 ml STAT ONE Administration - Departure Time of Disposition: 00:35 Departure Disposition: Home Clinical Impression: 2 CM LACERATION TO RIGHT WRIST Condition: Stable Critical Care Time: No Referrals: ANYA GARCÍA [Primary Care Provider] - Instructions: Care for a Laceration After Repair Additional Instructions: FOLLOW UP WITH PRIVATE DOCTOR TOMORROW. KEEP CLEAN & DRY. NEOSPORIN & BANDAGE DAILY TO RIGHT WRIST WOUND DAILY FOR 10 DAYS. HAVE SUTURES REMOVED IN 10 DAYS. Prescriptions: Cephalexin Monohydrate [Keflex] 500 mg PO TID #30 capsule
[2017-05-24] MEDS ORDERED: Xylocaine 2%-Epi 1:100,000 MDV IJ ONE ×2 (00:10→00:11)
[2017-05-24] MEDS ORDERED: XYLOCAINE 2%/Epi 1:200000 20ML VIAL MPF IJ ONE (00:11)
[2017-05-24 00:47] VITALS: BP 108/66; PULSE 81; O2SAT 95
== END 2017-05-24 00:47 | disposition home or self-care (01) ==
LOC: ED 23:21
PROC: 0HQDXZZ Repair Right Lower Arm Skin, External Approach (ICD-10-PCS; principal; 2017-05-23)
DX: S61.511A Laceration without foreign body of right wrist, initial encounter (principal); W26.8XXA Contact with other sharp object(s), not elsewhere classified, initial encounter
CPT/HCPCS: 12001; 90715; 90719; 96372; 99282; 99283; A9270-GY

== ENCOUNTER 2017-09-02 21:38 | Emergency (ER) | payer OTHER ==
[2017-09-02] MEDS ORDERED: BACTRIM DS TABLET PO ONE ×2 (22:15→22:19)
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
[2017-09-02 22:35] VITALS: BP 116/75; PULSE 88; O2SAT 98
== END 2017-09-02 22:35 | disposition home or self-care (01) ==
LOC: ED 21:38
DX: L02.416 Cutaneous abscess of left lower limb (principal); B95.62 Methicillin resistant Staphylococcus aureus infection as the cause of diseases classified elsewhere; L98.9 Disorder of the skin and subcutaneous tissue, unspecified; F41.8 Other specified anxiety disorders; Z72.0 Tobacco use
CPT/HCPCS: 99283; A9270-GY

== ENCOUNTER 2018-05-04 06:51 | Observation (INO) | payer SELFPAY ==
--- NOTE | 2018-05-04 12:13 | XRAY ---
Indication: Size less than dates. Two-dimensional OB ultrasound performed. Comparison: April 22 2018. Again there is a single viable intrauterine in cephalic presentation. heart rate 155 bpm. Normal three-vessel cord. anatomy previously documented. Visualized stomach, kidneys, and bladder unremarkable. Again posterior placenta without abruption/previa. BPD measures 7.83 cm corresponding to 31 weeks 3 day. HC measures 29.31 cm corresponding to 32 weeks 2 days. AC measures 27.34 cm corresponding to 31 weeks 3 days. FL measures 6.33 cm corresponding to 32 week 5 days. Estimated weight 4 pounds 2 oz., +/- 10 ounces. Again less than 3 percentile. KEENAN is 7.9 cm. Largest amniotic pocket 2.8 cm. Impression: Again single viable intrauterine with mean gestational age 32 weeks 0 day. There has been progression of with fetus now measuring 29 days smaller. Diminished KEENAN, borderline oligohydramnios.
[2018-05-04] MEDS ORDERED: Lactated Ringers 1,000 ML IV ONE (13:50)
[2018-05-04 14:15] LABS: BASOPHIL % 0.3 % (0.0-0.4); Basophil (Absolute #) 0.02 (0-0.4); Eosinophil % 0.7 % (0.00-5.0); Eosinophil (Absolute #) 0.05 (0-0.5); Granulocyte Absolute (ANC) 5.17 (1.4-6.9); Granulocytes % 72.1 % (36.0-66.0); Hematocrit 36.4 % (35-47); Hemoglobin 12.3 gm/dl (12.0-16.0); Lymphocyte (Absolute #) 1.33 (1.0-4.6); Lymphocytes % 18.5 % (24.0-44.0); Mean Cell Volume 94.1 fl (78-100); Mean Corpuscular Hgb Concent. 33.8 g/dl (32-36); Mean Platelet Volume 10.1 fl (6-9.5); Monocytes % 8.4 % (0.0-12.0); Platelet Count 214 K/mm3 (150-450); Red Blood Count 3.87 M/mm3 (4.1-5.4); Red Cell Distribution Width 13.3 % (11.5-14.0); White Blood Count 7.2 K/mm3 (4.0-10.5)
[2018-05-04 14:30] LABS: Mean Corpuscular Hemoglobin 31.7 pg (26-32)
[2018-05-04 14:38] LABS: ALBUMIN 3.8 g/dL (3.5-5.0); ALKALINE PHOSPHATASE 151 U/L (38-126); ANION GAP 12.1 MEQ/L (5-15); BLOOD UREA NITROGEN 7 mg/dL (7-17); CHLORIDE 107 mmol/L (98-107); Calcium 9.3 mg/dL (8.4-10.2); Carbon Dioxide 20 mmol/L (22-30); Creatinine 1 0.42 mg/dL (0.52-1.04); Glucose 96 mg/dL (74-106); SGOT/AST 20 U/L (14-36); SGPT/ALT 18 U/L (0-35); SODIUM 135 mmol/L (137-145)
[2018-05-04 16:05] LABS: Appearance CLEAR (CLEAR); Bilirubin NEGATIVE (NEGATIVE); Blood NEGATIVE Ery/ul (0-5); Glucose NEGATIVE (NEGATIVE); Ketones NEGATIVE (NEGATIVE); Leukocyte Esterase NEGATIVE (NEGATIVE); Nitrite NEGATIVE (NEGATIVE); Protein,Urine Dip NEGATIVE (Negative); Urobilinogen NORMAL mg/dL (0-1)
[2018-05-04 16:09] LABS: Amphetamine,Urine NEGATIVE (NEGATIVE); Barbiturate,Urine NEGATIVE (NEGATIVE); Benzodiazepine,Urine NEGATIVE (NEGATIVE); Cocaine,Urine NEGATIVE (NEGATIVE); Methadone,Urine NEGATIVE (NEGATIVE); Opiate,Urine NEGATIVE (NEGATIVE); PCP,Urine NEGATIVE (NEGATIVE); THC,Urine NEGATIVE (NEGATIVE)
[2018-05-04 16:52] VITALS: BP 116/69; PULSE 67
== END 2018-05-04 16:40 | disposition home or self-care (01) ==
LOC: RAD 10:52 → EDSTATUS 10:56 → OB 10:57
PROVIDERS: ADMIT Family Medicine; ATTEND Family Medicine
DX: Z34.83 Encounter for supervision of other normal pregnancy, third trimester (principal)
CPT/HCPCS: 36415; 59025; 76805; 80053; 80307; 81002; 85025; G0378

== ENCOUNTER 2018-11-26 22:49 | Observation (INO) | payer OTHER ==
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
[2018-11-26] MEDS ORDERED: Sodium Chloride 0.9% 1000 ML 2,000 ML IV STA (23:58)
[2018-11-27] MEDS ORDERED: Sodium Chloride 0.9% 1000 ML 1,000 ML ONE (00:18)
[2018-11-27 00:33] LABS: BASOPHIL % 0.8 % (0.0-0.4); Basophil (Absolute #) 0.05 (0-0.4); Eosinophil % 1.7 % (0.00-5.0); Granulocyte Absolute (ANC) 3.03 (1.4-6.9); Granulocytes % 50.8 % (36.0-66.0); Hematocrit 43.1 % (35-47); Hemoglobin 14.2 gm/dl (12.0-16.0); Lymphocyte (Absolute #) 2.21 (1.0-4.6); Mean Cell Volume 97.1 fl (78-100); Mean Corpuscular Hgb Concent. 32.9 g/dl (32-36); Mean Platelet Volume 10.9 fl (6-9.5); Monocyte (Absolute #) 0.58 (0.0-1.3); Monocytes % 9.7 % (0.0-12.0); Platelet Count 148 K/mm3 (150-450); Red Blood Count 4.44 M/mm3 (4.1-5.4); Red Cell Distribution Width 14.3 % (11.5-14.0)
[2018-11-27 00:42] LABS: ALBUMIN 4.9 g/dL (3.5-5.0); ALKALINE PHOSPHATASE 101 U/L (38-126); ANION GAP 17.7 MEQ/L (5-15); BLOOD UREA NITROGEN 6 mg/dL (7-17); CHLORIDE 115 mmol/L (98-107); Calcium 8.9 mg/dL (8.4-10.2); Carbon Dioxide 22 mmol/L (22-30); Creatinine 1 0.57 mg/dL (0.52-1.04); Glucose 100 mg/dL (74-106); Potassium 4.2 mmol/L (3.5-5.1); SGOT/AST 146 U/L (14-36); SGPT/ALT 158 U/L (0-35); Total Protein 8.2 g/dL (6.3-8.2)
[2018-11-27 00:51] LABS: ETHYL ALCOHOL 403 mg/dL (0-10); SODIUM 150 mmol/L (137-145)
[2018-11-27] MEDS ORDERED: Dextrose 5%-Lr IV Solution 1000 ML 1,000 ML IV ONE ×2 (00:55→01:49)
[2018-11-27 01:29] LABS: Amphetamine,Urine NEGATIVE (NEGATIVE); Barbiturate,Urine NEGATIVE (NEGATIVE); Benzodiazepine,Urine NEGATIVE (NEGATIVE); Cocaine,Urine NEGATIVE (NEGATIVE); Methadone,Urine NEGATIVE (NEGATIVE); Opiate,Urine NEGATIVE (NEGATIVE); PCP,Urine NEGATIVE (NEGATIVE); THC,Urine NEGATIVE (NEGATIVE)
[2018-11-27 01:50] LABS: Appearance CLEAR (CLEAR); Bilirubin NEGATIVE (NEGATIVE); Blood SMALL Ery/ul (0-5); Glucose NEGATIVE (NEGATIVE); Ketones NEGATIVE (NEGATIVE); Leukocyte Esterase NEGATIVE (NEGATIVE); Nitrite NEGATIVE (NEGATIVE); Protein,Urine Dip NEGATIVE (Negative); Specific Gravity 1.003 (1.005-1.025); Urobilinogen NEGATIVE mg/dL (0-1)
[2018-11-27] MEDS ORDERED: Nicoderm CQ 21 MG TOP SCH ×2 (03:26→22:00)
[2018-11-27] MEDS: Dextrose 5% -0.45 NaCl 1000 ML 1,000 ML IV SCH ×2 (05:30→16:23)
[2018-11-27 06:54] LABS: ALBUMIN 3.7 g/dL (3.5-5.0); ALKALINE PHOSPHATASE 69 U/L (38-126); ANION GAP 16.5 MEQ/L (5-15); BLOOD UREA NITROGEN 4 mg/dL (7-17); CHLORIDE 115 mmol/L (98-107); Calcium 8.3 mg/dL (8.4-10.2); Carbon Dioxide 19 mmol/L (22-30); Creatinine 1 0.66 mg/dL (0.52-1.04); ETHYL ALCOHOL 202 mg/dL (0-10); Glucose 88 mg/dL (74-106); Potassium 3.5 mmol/L (3.5-5.1); SGOT/AST 118 U/L (14-36); SGPT/ALT 120 U/L (0-35); SODIUM 147 mmol/L (137-145); Total Protein 6.3 g/dL (6.3-8.2)
[2018-11-27] MEDS: Ativan 2 MG/1 ML VIAL IV PRN ×5 (12:33→23:25)
[2018-11-27] MEDS ORDERED: Nicoderm CQ 21 MG ONE (16:41)
[2018-11-28] MEDS: Dextrose 5% -0.45 NaCl 1000 ML 1,000 ML IV SCH (02:45)
[2018-11-28] MEDS: Ativan 2 MG/1 ML VIAL IV PRN (09:00)
[2018-11-28] MEDS ORDERED: Ativan 1 MG PO ONE (11:15)
[2018-11-28 12:08] VITALS: BP 128/74; PULSE 94; O2SAT 96
--- NOTE | 2018-11-29 09:45 | HP ---
CHIEF COMPLAINT: Alcoholic intoxication. HISTORY OF PRESENT ILLNESS: The patient is a 28 year-old alcoholic female who apparently drank enough vodka to get her blood alcohol level about 0.4. She was brought into the hospital and admitted for observation due to concerns for her level of inebriation and for safety. The patient was an emergency alf by the emergency room doctor and a medicine man for further evaluation and management. The patient has shown no signs whatsoever being suicidal. She just drank too much. HOME MEDICATIONS: She reports no home medications presently. ALLERGIES: ADDERALL. PHYSICAL EXAMINATION: Currently reveals a well-nourished, well-developed 28 year-old white female in no obvious distress sitting up in bed, discussing with me seems quite coherently. Her temperature 97.8F, pulse 68, respiratory rate 20, blood pressure 122/85. O2 saturation 100%. HEENT: Normocephalic, atraumatic. Pupils equal round reactive to light. Extraocular movements intact. Oropharynx is pink and moist. NECK: Supple without lymphadenopathy, thyromegaly or JVD. CHEST: Clear to auscultation with good air movement bilaterally. HEART: Regular rate and rhythm without murmurs, rubs or gallops. ABDOMEN: Soft. No palpable masses. EXTREMITIES: Without cyanosis, clubbing or edema. NEUROLOGIC: The patient is alert and oriented x3. No focal deficits were noted. LAB DATA AND TESTS: Laboratory studies in the emergency room revealed urine drug screen which was negative. UA showing specific gravity 1.003 and otherwise negative. Her metabolic panel showed a glucose 100, BUN 6, creatinine 0.57. Sodium reported at 150. Potassium 4.2. Liver enzymes elevated with AST 146, ALT 158. ETOH 403. CBC was normal. At roughly 0300 hours in the morning the patient's ETOH was down to 284. ASSESSMENT: A patient with alcoholic intoxication and alcoholism. She was an emergency alf. Evaluation by [facility] will be ordered. She will be monitored for DT's and placed on DT protocol. She is otherwise doing quite well presently. She is currently voicing her wishes to stop the alcohol but I am not convinced at this point that she will actually follow through with this. She has been seen at [facility] before. She was also in the hospital previously for alcoholic intoxication on other episodes in the past.
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
== END 2018-11-28 14:00 | disposition home or self-care (01) ==
LOC: ED 22:49 → MED SURG 11-27 02:43
PROVIDERS: ADMIT Family Medicine; ATTEND Family Medicine
DX: F10.229 Alcohol dependence with intoxication, unspecified (principal)
CPT/HCPCS: 36000; 36415; 80053; 80307; 81001; 82962; 85025; 90791; 93005; 96360; 96365; 99285; G0378; G0480; Q3014; J2060; A9270-GY

== ENCOUNTER 2020-09-17 13:38 | Emergency (ER) | payer OTHER ==
[2020-09-17] MEDS ORDERED: Sodium Chloride 0.9% 1000 ML 1,000 ML IV STA (14:06)
[2020-09-17] MEDS ORDERED: TORAdol 30 mg Injection IV ONE (14:06)
[2020-09-17] MEDS ORDERED: Sodium Chloride 0.9% 1000 ML 1,000 ML ONE (14:15)
[2020-09-17] MEDS ORDERED: TORAdol 30 mg Injection ONE (14:15)
[2020-09-17 14:32] LABS: Appearance SLIGHTLY CLOUDY (CLEAR); Bilirubin NEGATIVE (NEGATIVE); Blood NEGATIVE Ery/ul (0-5); Glucose NEGATIVE (NEGATIVE); Ketones TRACE (NEGATIVE); Leukocyte Esterase NEGATIVE (NEGATIVE); Nitrite NEGATIVE (NEGATIVE); Protein,Urine Dip NEGATIVE (Negative); Specific Gravity 1.016 (1.005-1.025); Urobilinogen NEGATIVE mg/dL (0-1)
[2020-09-17 14:48] LABS: BASOPHIL % 0.4 % (0.0-0.4); Basophil (Absolute #) 0.04 (0-0.4); Eosinophil % 1.4 % (0.00-5.0); Eosinophil (Absolute #) 0.13 (0-0.5); Hematocrit 43.6 % (35-47); Hemoglobin 14.2 gm/dl (12.0-16.0); Lymphocyte (Absolute #) 2.54 (1.0-4.6); Lymphocytes % 26.7 % (24.0-44.0); Mean Cell Volume 89.3 fl (78-100); Mean Corpuscular Hemoglobin 29.1 pg (26-32); Mean Corpuscular Hgb Concent. 32.6 g/dl (32-36); Mean Platelet Volume 11.9 fl (7.5-11.0); Monocyte (Absolute #) 0.42 (0.0-1.3); Monocytes % 4.4 % (0.0-12.0); Neutrophil % 67.1 % (36.0-66.0); Platelet Count 308 K/mm3 (150-450); Red Blood Count 4.88 M/mm3 (4.1-5.4); Red Cell Distribution Width 13.7 % (11.5-14.0); White Blood Count 9.5 K/mm3 (4.0-10.5)
[2020-09-17 15:11] LABS: ALBUMIN 4.8 g/dL (3.5-5.0); ALKALINE PHOSPHATASE 110 U/L (38-126); ANION GAP 14.4 MEQ/L (5-15); BLOOD UREA NITROGEN 8 mg/dL (7-17); CHLORIDE 106 mmol/L (98-107); Calcium 9.8 mg/dL (8.4-10.2); Carbon Dioxide 21 mmol/L (22-30); Creatinine 1 0.69 mg/dL (0.52-1.04); EST GLOMERULAR FILTRATION RATE > 60.0 ML/MIN; Glucose 119 mg/dL (74-106); Potassium 4.1 mmol/L (3.5-5.1); SGOT/AST 37 U/L (14-36); SGPT/ALT 32 U/L (0-35); SODIUM 137 mmol/L (137-145); Total Protein 8.7 g/dL (6.3-8.2)
--- NOTE | 2020-09-17 15:27 | XRAY ---
Indication: Right flank pain. Multiple contiguous axial images obtained through the abdomen and pelvis without contrast using renal stone protocol. Comparison: None Lung bases are clear. Heart is not enlarged. No renal calculus or evidence for obstructive uropathy in either system. Right kidney demonstrates very minimal perinephric stranding, possible inflammatory/infectious process such as nephritis. Stomach is mildly distended with food/fluid. Noncontrasted stomach and bowel loops appear nonobstructed. Normal air-filled appendix. No free fluid/air. Gallbladder contracted without gallstones. Remaining liver, gallbladder, pancreas, spleen, adrenal glands, kidneys, ureters, bladder, uterus, and aorta appear unremarkable for noncontrast exam. Osseous structures intact. No ventral or inguinal hernias. Impression: 1. Negative renal calculus or evidence for obstructive uropathy. 2. Minimal right perinephric stranding. Rule out nephritis. 3. Remaining CT abdomen/pelvis without contrast exam is negative.
[2020-09-17] MEDS ORDERED: BACTRIM DS TABLET PO STA (15:54)
--- NOTE | 2020-09-17 16:04 | ERPHSYRPT ---
- History of Present Illness Time Seen by Provider: 09/17/20 14:00 Source: patient Exam Limitations: no limitations Patient Subjective Stated Complaint: Pt states "My right side really hurts. It started a couple days ago and went away and it came back this morning really bad." Triage Nursing Assessment: Pt presented alert and oriented X 3, skin pwd pt holding her right flank. PT ambulates with a hunched over slow gait. PT able to speak in clear full sentences. Physician History: Patient is a 30-year-old female presents to our ED with complaints of right- sided flank pain. Pain started approximately 3 days ago. Pain initially described as a soreness. However pain significantly worse today. No hematuria observed. No trauma. No fever. No nausea or vomiting. Symptoms are progressive. Symptoms are moderate in intensity. No specific worsening or improving factors. Patient is otherwise healthy. She voices no other complaints or concerns at this time. Timing/Duration: day(s) (3 days ago) Severity: moderate Modifying Factors: Improves With: nothing Associated Symptoms: No nausea, No vomiting, No abdominal pain, No shortness of breath, No heartburn, No diaphoresis, No cough, No chills, No chest pain, No fever, No headaches, No loss of appetite, No malaise Allergies/Adverse Reactions: amphetamine aspartate [From Adderall] Allergy (Verified 11/26/18 23:18) amphetamine sulfate [From Adderall] Allergy (Verified 11/26/18 23:18) dextroamphetamine saccharate [From Adderall] Allergy (Verified 11/26/18 23:18) dextroamphetamine sulfate [From Adderall] Allergy (Verified 11/26/18 23:18) Hx Tetanus, Diphtheria Vaccination/Date Given: No Hx Influenza Vaccination/Date Given: No Hx Pneumococcal Vaccination/Date Given: No Immunizations Up to Date: Yes Travel Risk - International Travel Have you traveled outside of the country in past 3 weeks: No - Coronavirus Screening Are you exhibiting any of the following symptoms?: No Close contact with a COVID-19 positive Pt in past 14-21 Days: No - Review of Systems Constitutional: No Symptoms, No Fever, No Chills Eyes: No Symptoms Ears, Nose, & Throat: No Symptoms Respiratory: No Symptoms, No Cough, No Dyspnea Cardiac: No Symptoms, No Chest Pain, No Edema, No Syncope Abdominal/Gastrointestinal: No Symptoms, No Abdominal Pain, No Nausea, No Vomiting, No Diarrhea Genitourinary Symptoms: No Symptoms, No Dysuria Musculoskeletal: No Symptoms, No Back Pain, No Neck Pain Skin: No Symptoms, No Rash Neurological: No Symptoms, No Dizziness, No Focal Weakness, No Sensory Changes Psychological: No Symptoms Endocrine: No Symptoms Hematologic/Lymphatic: No Symptoms Immunological/Allergic: No Symptoms All Other Systems: Reviewed and Negative - Past Medical History Pertinent Past Medical History: Yes Neurological History: No Pertinent History ENT History: No Pertinent History Cardiac History: No Pertinent History Respiratory History: No Pertinent History Endocrine Medical History: Hypoglycemia Musculoskeletal History: No Pertinent History GI Medical History: No Pertinent History History: No Pertinent History Psycho-Social History: Anxiety, Depression Female Reproductive Disorders: No Pertinent History Other Medical History: swollen liver - Past Surgical History Past Surgical History: Yes Neuro Surgical History: No Pertinent History Cardiac: No Pertinent History Respiratory: No Pertinent History Gastrointestinal: No Pertinent History Genitourinary: No Pertinent History Musculoskeletal: No Pertinent History Female Surgical History: Section Other Surgical History: CSECTION X3 - Social History Smoking Status: Current every day smoker How long have you smoked: years Exposure to second hand smoke: Yes Drug Use: none Patient Lives Alone: No - Female History Hx Last Menstrual Period: depo Hx Now: No (depo) - Nursing Vital Signs Nursing Vital Signs: Initial Vital Signs Temperature 99.4 F 09/17/20 13:50 Pulse Rate 100 H 09/17/20 13:50 Respiratory Rate 22 09/17/20 13:50 Blood Pressure 133/89 09/17/20 13:50 O2 Sat by Pulse Oximetry 100 09/17/20 13:50 Pain Scale Pain Intensity 8 - Physical Exam General Appearance: no apparent distress, alert Eye Exam: PERRL/EOMI, eyes nml inspection Ears, Nose, Throat Exam: normal ENT inspection, TMs normal, pharynx normal, moist mucous membranes Neck Exam: normal inspection, non-tender, supple, full range of motion Respiratory Exam: normal breath sounds, lungs clear, No respiratory distress Cardiovascular Exam: regular rate/rhythm, normal heart sounds, normal peripheral pulses Gastrointestinal/Abdomen Exam: soft, normal bowel sounds, No tenderness, No mass Back Exam: normal inspection, normal range of motion, CVA tenderness (Right CVA tenderness.), No vertebral tenderness Extremity Exam: normal inspection, normal range of motion, pelvis stable, other (Bonita sign negative x2. No leg swelling.) Neurologic Exam: alert, oriented x 3, cooperative, normal mood/affect, sensation nml, No motor deficits Skin Exam: normal color, warm, dry, No rash Lymphatic Exam: No adenopathy SpO2 Interpretation: normal SpO2: 98 O2 Delivery: Room Air - Course Nursing assessment & vital signs reviewed: Yes - CT Exams Abdomen/Pelvis CT Interpretation: Tele-radiologist Report (Renal calculus or evidence for obstructive uropathy. Minimal right perinephric stranding. Rule out nephritis. Remaining CT abdomen pelvis without contrast exam is negative.) Ordered Tests: Active Orders 24 hr Category Date Time Status IV Insertion STAT Care 09/17/20 14:06 Active ABDOMEN AND PELVIS W/0 CONTRAS [CT] Stat Exams 09/17/20 14:07 Completed CBC W DIFF Stat Lab 09/17/20 14:32 Completed CMP Stat Lab 09/17/20 14:32 Completed CULTURE,URINE Stat Lab 09/17/20 Ordered HCG,QUALITATIVE URINE Stat Lab 09/17/20 14:14 Completed UA W/RFX UR CULTURE Stat Lab 09/17/20 14:14 Completed Medication Summary Discontinued Medications Generic Name Dose Route Start Last Admin Trade Name Freq PRN Reason Stop Dose Admin Sodium Chloride 1,000 mls @ 999 mls/hr 09/17/20 14:06 09/17/20 14:17 Sodium Chloride 0.9% 1000 Ml IV 09/17/20 15:06 999 mls/hr .Q1H1M STA Administration Sodium Chloride Confirm 09/17/20 14:15 Sodium Chloride 0.9% 1000 Ml Administered 09/17/20 14:16 Dose 1,000 mls @ ud .ROUTE .STK-MED ONE Ketorolac Tromethamine 30 mg 09/17/20 14:06 09/17/20 14:17 Toradol 30 Mg Injection IV 09/17/20 14:07 30 mg STAT ONE Administration Ketorolac Tromethamine Confirm 09/17/20 14:15 Toradol 30 Mg Injection Administered 09/17/20 14:16 Dose 30 mg .ROUTE .STK-MED ONE Trimethoprim/Sulfamethoxazole 1 tab 09/17/20 15:54 Bactrim Ds Tablet PO 09/17/20 15:55 STAT STA Lab/Rad Data: Laboratory Result Diagrams 09/17/20 14:32 09/17/20 14:32 Laboratory Results 09/17/20 09/17/20 09/17/20 Range/Units 14:32 14:32 14:14 WBC 9.5 (4.0-10.5) K/mm3 RBC 4.88 (4.1-5.4) M/mm3 Hgb 14.2 (12.0-16.0) gm/dl Hct 43.6 (35-47) % MCV 89.3 (78-100) fl MCH 29.1 (26-32) pg MCHC 32.6 (32-36) g/dl RDW 13.7 (11.5-14.0) % Plt Count 308 (150-450) K/mm3 MPV 11.9 H (7.5-11.0) fl Gran % 67.1 H (36.0-66.0) % Eos # (Auto) 0.13 (0-0.5) Absolute Lymphs (auto) 2.54 (1.0-4.6) Absolute Monos (auto) 0.42 (0.0-1.3) Lymphocytes % 26.7 (24.0-44.0) % Monocytes % 4.4 (0.0-12.0) % Eosinophils % 1.4 (0.00-5.0) % Basophils % 0.4 (0.0-0.4) % Absolute Granulocytes 6.40 (1.4-6.9) Basophils # 0.04 (0-0.4) Sodium 137 (137-145) mmol/L Potassium 4.1 (3.5-5.1) mmol/L Chloride 106 (98-107) mmol/L Carbon Dioxide 21 L (22-30) mmol/L Anion Gap 14.4 (5-15) MEQ/L BUN 8 (7-17) mg/dL Creatinine 0.69 (0.52-1.04) mg/dL Estimated GFR > 60.0 ML/MIN Glucose 119 H (74-106) mg/dL Calcium 9.8 (8.4-10.2) mg/dL Total Bilirubin 0.50 (0.2-1.3) mg/dL AST 37 H (14-36) U/L ALT 32 (0-35) U/L Alkaline Phosphatase 110 (38-126) U/L Serum Total Protein 8.7 H (6.3-8.2) g/dL Albumin 4.8 (3.5-5.0) g/dL Urine Color (YELLOW) Urine Appearance (CLEAR) Urine pH (5-6) Ur Specific [place] (1.005-1.025) Urine Protein (Negative) Urine Ketones (NEGATIVE) Urine Blood (0-5) Percy/ul Urine Nitrite (NEGATIVE) Urine Bilirubin (NEGATIVE) Urine Urobilinogen (0-1) mg/dL Ur Leukocyte Esterase (NEGATIVE) Urine WBC (Auto) (0-5) /HPF Urine RBC (Auto) (0-2) /HPF U Epithel Cells (Auto) (FEW) /HPF Urine Bacteria (Auto) (NEGATIVE) /HPF Urine Culture Reflexed (NO) Urine Glucose (NEGATIVE) mg/dL Urine HCG, Qual NEGATIVE (Negative) 09/17/20 Range/Units 14:14 WBC (4.0-10.5) K/mm3 RBC (4.1-5.4) M/mm3 Hgb (12.0-16.0) gm/dl Hct (35-47) % MCV (78-100) fl MCH (26-32) pg MCHC (32-36) g/dl RDW (11.5-14.0) % Plt Count (150-450) K/mm3 MPV (7.5-11.0) fl Gran % (36.0-66.0) % Eos # (Auto) (0-0.5) Absolute Lymphs (auto) (1.0-4.6) Absolute Monos (auto) (0.0-1.3) Lymphocytes % (24.0-44.0) % Monocytes % (0.0-12.0) % Eosinophils % (0.00-5.0) % Basophils % (0.0-0.4) % Absolute Granulocytes (1.4-6.9) Basophils # (0-0.4) Sodium (137-145) mmol/L Potassium (3.5-5.1) mmol/L Chloride (98-107) mmol/L Carbon Dioxide (22-30) mmol/L Anion Gap (5-15) MEQ/L BUN (7-17) mg/dL Creatinine (0.52-1.04) mg/dL Estimated GFR ML/MIN Glucose (74-106) mg/dL Calcium (8.4-10.2) mg/dL Total Bilirubin (0.2-1.3) mg/dL AST (14-36) U/L ALT (0-35) U/L Alkaline Phosphatase (38-126) U/L Serum Total Protein (6.3-8.2) g/dL Albumin (3.5-5.0) g/dL Urine Color YELLOW (YELLOW) Urine Appearance SLIGHTLY CLOUDY (CLEAR) Urine pH 7.0 (5-6) Ur Specific [place] 1.016 (1.005-1.025) Urine Protein NEGATIVE (Negative) Urine Ketones TRACE (NEGATIVE) Urine Blood NEGATIVE (0-5) Percy/ul Urine Nitrite NEGATIVE (NEGATIVE) Urine Bilirubin NEGATIVE (NEGATIVE) Urine Urobilinogen NEGATIVE (0-1) mg/dL Ur Leukocyte Esterase NEGATIVE (NEGATIVE) Urine WBC (Auto) NONE (0-5) /HPF Urine RBC (Auto) NONE (0-2) /HPF U Epithel Cells (Auto) NONE (FEW) /HPF Urine Bacteria (Auto) NONE (NEGATIVE) /HPF Urine Culture Reflexed NO (NO) Urine Glucose NEGATIVE (NEGATIVE) mg/dL Urine HCG, Qual (Negative) - Progress Progress: improved Progress Note: 09/17/20 16:04 Patient reassessed. Pain improved. CT suggestive of right side nephritis. No ureterolithiasis or obstructive uropathy. UA appears negative. Case discussed with Dr. Fried. We will send urine for cultures. We will empirically treat with antibiotics. Patient received a dose of Bactrim in our ED. A prescription for Bactrim was provided to patient's pharmacy. Patient will follow up with Dr. Fried to work-up infectious versus possible inflammatory/autoimmune nephritis. No leukocytosis. Patient afebrile. Plan of care discussed with patient. She agrees to follow-up with Dr. Fried within 48 hours for reevaluation. Pain controlled with Tylenol. Patient voices no other complaints or concerns at this time. Discussed with : Linnette Will see patient in: office Counseled pt/family regarding: lab results, diagnosis, need for follow-up, rad results - Departure Departure Disposition: Home Clinical Impression: Nephritis Condition: Stable Critical Care Time: No Referrals: NIA FRIED MD [Primary Care Provider] - Additional Instructions: Discharge/Care Plan ANGELICA KULKARNI was seen on 09/17/20 in the Emergency Room. The patient was counseled regarding Diagnosis,Lab results, Imaging studies, need for follow up and when to return to the Emergency Room. Prescriptions given: Discharge Note I have spoken with the patient and/or caregivers. I have explained the patient's condition, diagnosis and treatment plan based on the information available to me at this time. I have answered the patient's and/or caregiver's questions and addressed any concerns. The patient and/or caregivers have as good understanding of the patient's diagnosis, condition and treatment plan as can be expected at this point. The vital signs have been stable. The patient's condition is stable and appropriate for discharge from the emergency department. The patient will pursue further outpatient evaluation with the primary care physician or other designated or consulting physician as outlined in the discharge instructions. The patient and/or caregivers are agreeable to this plan of care and follow-up instructions have been explained in detail. The patient and/or caregivers have received these instruction. The patient/and or caregivers are aware that any significant change in condition or worsening of symptoms should prompt an immediate return to this or the closest emergency department or call 911. Prescriptions: Smz/Tmp Ds Tablet [Bactrim Ds Tablet] 1 tab PO Q12H 7 Days #14 tablet
[2020-09-17] MEDS ORDERED: BACTRIM DS TABLET PO ONE (16:20)
[2020-09-17 16:23] VITALS: BP 107/69; PULSE 70; O2SAT 100
== END 2020-09-17 16:34 | disposition home or self-care (01) ==
LOC: ED 13:38
DX: R10.31 Right lower quadrant pain (principal); N05.9 Unspecified nephritic syndrome with unspecified morphologic changes; F17.200 Nicotine dependence, unspecified, uncomplicated
CPT/HCPCS: 36000; 36415; 74176; 80053; 81001; 84703; 85025; 87040; 87086; 96360; 96374; 99284; J1885; A9270-GY

== ENCOUNTER 2023-04-14 17:52 | Emergency (ER) | payer OTHER ==
[2023-04-14 18:14] VITALS: PULSE 82; TEMP 96.8
--- NOTE | 2023-04-14 18:20 | ERPHSYRPT ---
- History of Present Illness Time Seen by Provider: 04/14/23 18:17 Historian: patient Exam Limitations: no limitations Patient Subjective Stated Complaint: Pt c/o sweats, nausea for 6 days, and abdominal pain for 2 days Triage Nursing Assessment: Pt brought self to the ER, vitals wnl, rates pain as 8-9/10 when the pain hits, pt states that she went to [facility] yesterday and was told that she possibly has an infected colon and so they gave her an antibiotic, pt states that today her abdomen is distended and painful, pt states that her stools have been watery and mucusy, pain is mainly in her upper epigastric region but it tender to palpatation in the LLQ and the RLQ, has had 2-3 bowel movements daily, nauseous, hurts abdomen to go over bumps in the car, bowel sounds heard in all quadrants, is taking Bactrim for an abcess on her breast but stopped taking it 4 days ago because she thought that was what was making her sick, pulses normal, skin n/w/d, pt feels short of breath when she is walking Physician History: Patient is a 32-year-old female presents to our ED for evaluation of epigastric pain and diarrhea. Patient has been experiencing nausea for approximately 6 days. Patient has been experiencing abdominal pain for 2. Patient went to [facility] for the same yesterday. Patient was advised that she may have a "abdominal infection". Patient was started on antibiotics. However patient advised that her symptoms started after completing a course of antibiotics for breast abscess. Patient has been off of her Bactrim for the breast abscess for approximately 4 days. No trauma. No fever. Patient has lower abdominal tenderness to palpation. No dysuria or hematuria. Patient states she is otherwise healthy. She voices no other complaints or concerns at this time. Portions of this note were created with voice recognition technology. There may be grammatical, spelling, punctuation or sound alike errors Timing/Duration: day(s) Activities at Onset: none (6 days) Quality: aching Abdominal Pain Onset Location: epigastric Pain Radiation: no radiation Severity of Pain-Max: moderate Severity of Pain-Current: mild Modifying Factors: Improves With: other (Tenderness to palpation bilateral lower quadrants. Patient states that bumpy car rides reproduces her pain.) Associated Symptoms: diarrhea, nausea Previous symptoms: no prior history Allergies/Adverse Reactions: amphetamine aspartate [From Adderall] Allergy (Verified 04/14/23 18:12) amphetamine sulfate [From Adderall] Allergy (Verified 04/14/23 18:12) dextroamphetamine saccharate [From Adderall] Allergy (Verified 04/14/23 18:12) dextroamphetamine sulfate [From Adderall] Allergy (Verified 04/14/23 18:12) Home Medications: Varenicline Tartrate 1 mg PO BID 04/14/23 [History] Hx Tetanus, Diphtheria Vaccination/Date Given: No Hx Influenza Vaccination/Date Given: No Hx Pneumococcal Vaccination/Date Given: No Travel Risk - International Travel Have you traveled outside of the country in past 3 weeks: No - Coronavirus Screening Are you exhibiting any of the following symptoms?: No Close contact with a COVID-19 positive Pt in past 14-21 Days: No - Vaccine Status Have you recieved a Covid-19 vaccination: No - Review of Systems Constitutional: No Symptoms, No Fever, No Chills Eyes: No Symptoms Ears, Nose, & Throat: No Symptoms Respiratory: No Symptoms, No Cough, No Dyspnea Cardiac: No Symptoms, No Chest Pain, No Edema, No Syncope Abdominal/Gastrointestinal: No Symptoms, No Abdominal Pain, No Nausea, No Vomiting, No Diarrhea Genitourinary Symptoms: No Symptoms, No Dysuria Musculoskeletal: No Symptoms, No Back Pain, No Neck Pain Skin: No Symptoms, No Rash Neurological: No Symptoms, No Dizziness, No Focal Weakness, No Sensory Changes Psychological: No Symptoms Endocrine: No Symptoms Hematologic/Lymphatic: No Symptoms Immunological/Allergic: No Symptoms All Other Systems: Reviewed and Negative - Past Medical History Pertinent Past Medical History: Yes Neurological History: No Pertinent History ENT History: No Pertinent History Cardiac History: No Pertinent History Respiratory History: No Pertinent History Endocrine Medical History: Hypoglycemia Musculoskeletal History: No Pertinent History GI Medical History: No Pertinent History History: No Pertinent History Psycho-Social History: Anxiety, Depression Female Reproductive Disorders: No Pertinent History Other Medical History: swollen liver - Past Surgical History Past Surgical History: Yes Neuro Surgical History: No Pertinent History Cardiac: No Pertinent History Respiratory: No Pertinent History Gastrointestinal: No Pertinent History Genitourinary: No Pertinent History Musculoskeletal: No Pertinent History Female Surgical History: Section Other Surgical History: CSECTION X3 - Social History Smoking Status: Current every day smoker How long have you smoked: vapes Exposure to second hand smoke: Yes Drug Use: none Patient Lives Alone: No - Female History Hx Now: No (depo) - Nursing Vital Signs Nursing Vital Signs: Initial Vital Signs Temperature 96.8 F 04/14/23 17:57 Pulse Rate 82 04/14/23 17:57 Blood Pressure 123/89 04/14/23 17:57 O2 Sat by Pulse Oximetry 100 04/14/23 17:57 Pain Scale Pain Intensity 8 - Physical Exam General Appearance: no apparent distress, alert Eye Exam: PERRL/EOMI, eyes nml inspection Ears, Nose, Throat Exam: normal ENT inspection, pharynx normal, moist mucous membranes Neck Exam: normal inspection, non-tender, supple, full range of motion Respiratory Exam: normal breath sounds, lungs clear, airway intact, No respi ratory distress Cardiovascular Exam: regular rate/rhythm, normal heart sounds, normal peripheral pulses Gastrointestinal/Abdomen Exam: soft, tenderness (Tenderness to bilateral lower quadrant.), No mass Back Exam: normal inspection, normal range of motion, No CVA tenderness, No vertebral tenderness Extremity Exam: normal inspection, normal range of motion, pelvis stable Neurologic Exam: alert, oriented x 3, cooperative, normal mood/affect, nml cerebellar function, sensation nml, No motor deficits Skin Exam: normal color, warm, dry Lymphatic Exam: No adenopathy SpO2 Interpretation: normal SpO2: 100 O2 Delivery: Room Air - Course Nursing assessment & vital signs reviewed: Yes - CT Exams Abdomen/Pelvis CT Interpretation: Tele-radiologist Report (Normal appendix. New minimal ascending colitis. Residual contrast in system. Remaining abdomen pelvis negative.) Ordered Tests: Active Orders 24 hr Category Date Time Status IV Insertion STAT Care 04/14/23 18:17 Active ABDOMEN AND PELVIS W/0 CONTRAS [CT] Stat Exams 04/14/23 18:18 Taken CBC W DIFF Stat Lab 04/14/23 18:26 Completed CMP Stat Lab 04/14/23 18:26 Completed CULTURE,URINE Stat Lab 04/14/23 19:53 Received HCG QUALITATIVE, URINE Stat Lab 04/14/23 19:54 Completed LIPASE Stat Lab 04/14/23 18:26 Completed TROPONIN Q4H Lab 04/14/23 18:26 Completed TROPONIN Q4H Lab 04/14/23 22:30 Ordered TROPONIN Q4H Lab 04/15/23 02:30 Ordered UA W/RFX UR CULTURE Stat Lab 04/14/23 19:53 Completed Medication Summary Generic Name Dose Route Start Last Admin Trade Name Malinda PRN Reason Stop Dose Admin Sodium Chloride 1,000 mls @ 100 mls/hr 04/14/23 18:30 04/14/23 18:23 Sodium Chloride 0.9% 1000 Ml IV 05/14/23 18:29 100 mls/hr .Q10H JANIYA Administration Discontinued Medications Generic Name Dose Route Start Last Admin Trade Name Malinda PRN Reason Stop Dose Admin Morphine Sulfate 4 mg 04/14/23 21:44 Morphine Sulfate 4 Mg/Ml Injection IV 04/14/23 21:45 STAT ONE Ondansetron HCl 4 mg 04/14/23 21:45 Ondansetron Hcl 4 Mg/2 Ml Vial IV 04/14/23 21:46 STAT ONE Lab/Rad Data: Laboratory Result Diagrams 04/14/23 18:26 04/14/23 18:26 Laboratory Results 04/14/23 04/14/23 04/14/23 Range/Units 19:54 19:53 18:26 WBC (4.0-10.5) x10^3/uL RBC (4.1-5.4) x10^6/uL Hgb (12.0-16.0) g/dL Hct (35-47) % MCV (78-100) fL MCH (26-32) pg MCHC (32-36) g/dL RDW (11.5-14.0) % Plt Count (150-450) x10^3/uL MPV (7.5-11.0) fL Gran % (36.0-66.0) % Immature Gran % (Auto) (0.00-0.4) % Nucleat RBC Rel Count (0.00-0.1) % Eos # (Auto) (0-0.5) x10^3/uL Immature Gran # (Auto) (0.00-0.03) x10^3u/L Absolute Lymphs (auto) (1.0-4.6) x10^3/uL Absolute Monos (auto) (0.0-1.3) x10^3/uL Absolute Nucleated RBC (0.00-0.01) x10^3u/L Lymphocytes % (24.0-44.0) % Monocytes % (0.0-12.0) % Eosinophils % (0.00-5.0) % Basophils % (0.0-0.4) % Absolute Granulocytes (1.4-6.9) x10^3/uL Basophils # (0-0.4) x10^3/uL Sodium (137-145) mmol/L Potassium (3.5-5.1) mmol/L Chloride (98-107) mmol/L Carbon Dioxide (22-30) mmol/L Anion Gap (5-15) MEQ/L BUN (7-17) mg/dL Creatinine (0.52-1.04) mg/dL Estimated GFR ML/MIN Glucose (74-106) mg/dL Calcium (8.4-10.2) mg/dL Total Bilirubin (0.2-1.3) mg/dL AST (14-36) U/L ALT (0-35) U/L Alkaline Phosphatase (38-126) U/L Troponin I < 0.012 (0.000-0.034) ng/mL Serum Total Protein (6.3-8.2) g/dL Albumin (3.5-5.0) g/dL Lipase (23-300) U/L Urine Color Yellow (Yellow) Urine Appearance Clear (Clear) Urine pH 6.0 (4.6-8.0) Ur Specific [place] 1.025 (1.005-1.030) Urine Protein 30 (Negative) Urine Glucose (UA) Negative (Negative) mg/dL Urine Ketones Trace A (Negative) Urine Blood Negative (Negative) Urine Nitrite Negative (Negative) Urine Bilirubin Negative (Negative) Urine Urobilinogen 0.2 (0.2) mg/dL Ur Leukocyte Esterase Trace A (Negative) U Hyaline Cast (Auto) 3-5 A (0-2) /LPF Urine Microscopic RBC 11-20 A (0-5) /HPF Urine Microscopic WBC 0-2 (0-5) /HPF Ur Epithelial Cells Rare (None Seen) /HPF Urine Bacteria Rare A (None Seen) /HPF Urine Culture Reflexed YES (NO) Urine HCG, Qual NEGATIVE (NEGATIVE) 04/14/23 04/14/23 Range/Units 18:26 18:26 WBC 14.2 H (4.0-10.5) x10^3/uL RBC 4.82 (4.1-5.4) x10^6/uL Hgb 14.0 (12.0-16.0) g/dL Hct 42.7 (35-47) % MCV 88.6 (78-100) fL MCH 29.0 (26-32) pg MCHC 32.8 (32-36) g/dL RDW 13.1 (11.5-14.0) % Plt Count 301 (150-450) x10^3/uL MPV 11.6 H (7.5-11.0) fL Gran % 81.5 H (36.0-66.0) % Immature Gran % (Auto) 0.4 (0.00-0.4) % Nucleat RBC Rel Count 0.0 (0.00-0.1) % Eos # (Auto) 0.03 (0-0.5) x10^3/uL Immature Gran # (Auto) 0.06 H (0.00-0.03) x10^3u/L Absolute Lymphs (auto) 1.73 (1.0-4.6) x10^3/uL Absolute Monos (auto) 0.76 (0.0-1.3) x10^3/uL Absolute Nucleated RBC 0.00 (0.00-0.01) x10^3u/L Lymphocytes % 12.2 L (24.0-44.0) % Monocytes % 5.3 (0.0-12.0) % Eosinophils % 0.2 (0.00-5.0) % Basophils % 0.4 (0.0-0.4) % Absolute Granulocytes 11.60 H (1.4-6.9) x10^3/uL Basophils # 0.05 (0-0.4) x10^3/uL Sodium 139 (137-145) mmol/L Potassium 3.6 (3.5-5.1) mmol/L Chloride 103 (98-107) mmol/L Carbon Dioxide 23 (22-30) mmol/L Anion Gap 17.2 H (5-15) MEQ/L BUN 12 (7-17) mg/dL Creatinine 0.81 (0.52-1.04) mg/dL Estimated GFR > 60.0 ML/MIN Glucose 120 H (74-106) mg/dL Calcium 9.9 (8.4-10.2) mg/dL Total Bilirubin 0.60 (0.2-1.3) mg/dL AST 32 (14-36) U/L ALT 33 (0-35) U/L Alkaline Phosphatase 133 H (38-126) U/L Troponin I (0.000-0.034) ng/mL Serum Total Protein 9.1 H (6.3-8.2) g/dL Albumin 4.9 (3.5-5.0) g/dL Lipase 56 (23-300) U/L Urine Color (Yellow) Urine Appearance (Clear) Urine pH (4.6-8.0) Ur Specific [place] (1.005-1.030) Urine Protein (Negative) Urine Glucose (UA) (Negative) mg/dL Urine Ketones (Negative) Urine Blood (Negative) Urine Nitrite (Negative) Urine Bilirubin (Negative) Urine Urobilinogen (0.2) mg/dL Ur Leukocyte Esterase (Negative) U Hyaline Cast (Auto) (0-2) /LPF Urine Microscopic RBC (0-5) /HPF Urine Microscopic WBC (0-5) /HPF Ur Epithelial Cells (None Seen) /HPF Urine Bacteria (None Seen) /HPF Urine Culture Reflexed (NO) Urine HCG, Qual (NEGATIVE) - Progress Progress: improved Progress Note: Patient a 32-year-old female presents to our ED for evaluation of abdominal pain. Patient went to an outside hospital for the same. Patient was diagnosed with a colitis. Patient had a regular meal today. Patient's abdominal pain flared up. Patient is here complaining of abdominal pain. Patient was offered pain medication at the outside hospital but declined. Patient has not taken any pain medication. Otherwise no other complaints. No trauma. No fever. Physical exam reveals some tenderness mostly in the periumbilical region. CT scan reveals a normal appendix. New minimal ascending colitis observed on today's CAT scan. Patient has a leukocytosis of 14,000. We discussed the benef it of admission but patient declined. Patient states she has 3 children at home and her has to work. The patient adamantly declined admission for further evaluation and treatment. We will discharge patient home upon her request. Risks and benefits discussed of both options. Patient initially declined pain medication. However she requested pain medication prior to leaving. Patient received a dose of Toradol and Zofran. We did not administer morphine as patient does not have anyone to take her home. A prescription for [place] and Zofran was forwarded to patient's pharmacy. Patient currently has a follow-up appointment scheduled for . Patient has no other complaints we will discharge patient home. Stable. Portions of this note were created with voice recognition technology. There may be grammatical, spelling, punctuation or sound alike errors Complexity of problem addressed is moderate acute complicated No critical care time Complexity of data reviewed and analyzed is moderate. Test ordered. Test reviewed and analyzed. Clinical correlation made between exam results and history and physical examination. Our work-up today confirms patient's findings yesterday at the outside hospital. Patient has a prescription for Flagyl which was prescribed to her at the outside hospital. Patient will continue taking the Flagyl as prescribed. Risk of complication and or risk morbidity/mortality of patient management is moderate. A prescription for [place] and Zofran was forwarded to patient's pharmacy. Vital stable. Patient requesting discharge at this time. Plan of care established for shared decision making. No social determinants of health present to impede follow-up. Time to discharge patient approximately 15 minutes. Patient voices no other complaints or concerns at this time. Portions of this note were created with voice recognition technology. There may be grammatical, spelling, punctuation or sound alike error 04/14/23 21:51 Counseled pt/family regarding: lab results, diagnosis, need for follow-up, rad results - Departure Departure Disposition: Home Clinical Impression: Colitis, High anion gap metabolic acidosis, Microscopic hematuria, Abdominal pain Condition: Stable Critical Care Time: No Referrals: CARMELITA GALLO, [employer] [Primary Care Provider] - Follow up/PCP as directed Additional Instructions: Discharge/Care Plan SHADANGELICA KHOURY was seen on 04/14/23 in the Emergency Room. The patient was counseled regarding Diagnosis,Lab results, Imaging studies, need for follow up and when to return to the Emergency Room. Prescriptions given: Discharge Note I have spoken with the patient and/or caregivers. I have explained the patient's condition, diagnosis and treatment plan based on the information available to me at this time. I have answered the patient's and/or caregiver's questions and addressed any concerns. The patient and/or caregivers have as good understanding of the patient's diagnosis, condition and treatment plan as can be expected at this point. The vital signs have been stable. The patient's condition is stable and appropriate for discharge from the emergency department. The patient will pursue further outpatient evaluation with the primary care physician or other designated or consulting physician as outlined in the discharge instructions. The patient and/or caregivers are agreeable to this plan of care and follow-up instructions have been explained in detail. The patient and/or caregivers have received these instruction. The patient/and or caregivers are aware that any significant change in condition or worsening of symptoms should prompt an immediate return to this or the closest emergency department or call 911. Prescriptions: Hydrocodone/APAP 5/325 [[place] 5/325 mg] 1 each PO Q6H PRN PRN 3 Days #10 tablet MDD 4 PRN Reason: Pain Ondansetron ODT 4 MG [Zofran Odt 4 mg] 4 mg PO Q6H PRN PRN #10 tablet PRN Reason: Vomiting
[2023-04-14] MEDS ORDERED: Sodium Chloride 0.9% 1000 ML 1,000 ML ONE (18:22)
[2023-04-14] MEDS: Sodium Chloride 0.9% 1000 ML 1,000 ML IV SCH (18:23)
[2023-04-14 18:31] LABS: BASOPHIL % 0.4 % (0.0-0.4); Basophil (Absolute #) 0.05 x10^3/uL (0-0.4); Eosinophil % 0.2 % (0.00-5.0); Eosinophil (Absolute #) 0.03 x10^3/uL (0-0.5); Hematocrit 42.7 % (35-47); IMMATURE GRAN # 0.06 x10^3u/L (0.00-0.03); IMMATURE GRAN % 0.4 % (0.00-0.4); Lymphocyte (Absolute #) 1.73 x10^3/uL (1.0-4.6); Lymphocytes % 12.2 % (24.0-44.0); Mean Cell Volume 88.6 fL (78-100); Mean Corpuscular Hgb Concent. 32.8 g/dL (32-36); Mean Platelet Volume 11.6 fL (7.5-11.0); Monocyte (Absolute #) 0.76 x10^3/uL (0.0-1.3); Monocytes % 5.3 % (0.0-12.0); Neutrophil % 81.5 % (36.0-66.0); Platelet Count 301 x10^3/uL (150-450); Red Blood Count 4.82 x10^6/uL (4.1-5.4); Red Cell Distribution Width 13.1 % (11.5-14.0); White Blood Count 14.2 x10^3/uL (4.0-10.5)
[2023-04-14 18:45] LABS: ALBUMIN 4.9 g/dL (3.5-5.0); ALKALINE PHOSPHATASE 133 U/L (38-126); ANION GAP 17.2 MEQ/L (5-15); BLOOD UREA NITROGEN 12 mg/dL (7-17); CHLORIDE 103 mmol/L (98-107); Calcium 9.9 mg/dL (8.4-10.2); Carbon Dioxide 23 mmol/L (22-30); Creatinine 1 0.81 mg/dL (0.52-1.04); EST GLOMERULAR FILTRATION RATE > 60.0 ML/MIN; Glucose 120 mg/dL (74-106); LIPASE 56 U/L (23-300); Potassium 3.6 mmol/L (3.5-5.1); SGOT/AST 32 U/L (14-36); SGPT/ALT 33 U/L (0-35); SODIUM 139 mmol/L (137-145); Total Protein 9.1 g/dL (6.3-8.2)
[2023-04-14 20:00] LABS: HCG URINE TEST NEGATIVE (NEGATIVE)
[2023-04-14 20:15] LABS: Appearance Clear (Clear); Bacteria Rare /HPF (None Seen); Bilirubin Negative (Negative); Blood Negative (Negative); Epithelial Cells Rare /HPF (None Seen); Glucose, Urine Negative (Negative); Ketones Trace (Negative); Leukocyte Esterase Trace (Negative); Nitrite Negative (Negative); Protein,Urine Dip 30 (Negative); Specific Gravity 1.025 (1.005-1.030); Urobilinogen 0.2 mg/dL (0.2); WBC 0-2 /HPF (0-5)
[2023-04-14 20:16] LABS: ADD URINE CULTURE? YES (NO)
[2023-04-14 21:07] VITALS: BP 111/77
[2023-04-14 21:41] VITALS: O2SAT 100
[2023-04-14] MEDS ORDERED: Zofran 4 MG/2 ML VIAL ONE (21:51)
[2023-04-14] MEDS ORDERED: TORAdol 30 mg Injection ONE (21:52)
[2023-04-14] MEDS: Zofran 4 MG/2 ML VIAL IV ONE (21:53)
[2023-04-14] MEDS: TORAdol 30 mg Injection IV ONE (21:56)
[2023-04-14] MEDS: MORPHINE SULFATE 4 MG INJ IV ONE (22:01)
--- NOTE | 2023-04-15 08:53 | XRAY ---
Indication: Abdomen pain and diarrhea. Recent diagnosis colitis one day earlier from CT exam from [facility]. Multiple contiguous axial images obtained through the abdomen and pelvis without contrast. Comparison: September 17, 2020 Lung bases clear. Heart not enlarged. Noncontrasted stomach and bowel loops appear nonobstructed with normal appendix. Ascending colon now demonstrates mild circumferential wall thickening with minimal pericolonic stranding favoring colitis. No free fluid/air. Residual contrast in the system and gallbladder from recent CT with contrast exam. Remaining liver, gallbladder, pancreas, spleen, adrenal glands, kidneys, ureters, bladder, uterus, and aorta are unremarkable. Osseous structures intact. No ventral or inguinal hernias. Impression: 1. CT findings favoring ascending colitis. No complications. 2. Residual contrast from recent CT with contrast exam. 3. Remaining CT abdomen/pelvis without contrast exam negative.
== END 2023-04-14 22:10 | disposition home or self-care (01) ==
LOC: ED 17:52
DX: K52.9 Noninfective gastroenteritis and colitis, unspecified (principal); E87.20 Acidosis, unspecified; R31.29 Other microscopic hematuria; R10.13 Epigastric pain; R11.0 Nausea; Z79.891 Long term (current) use of opiate analgesic; Z79.899 Other long term (current) drug therapy; Z28.310 Unvaccinated for COVID-19; Z72.0 Tobacco use
CPT/HCPCS: 36415; 74176; 80053; 81001; 81025; 83690; 84484; 85025; 87086; 96374; 96375; 99284; J1885; J2405

== ENCOUNTER 2024-07-20 17:17 | Emergency (ER) | payer OTHER ==
[2024-07-20 18:18] VITALS: TEMP 98.2
--- NOTE | 2024-07-20 19:12 | ERPHSYRPT ---
- History of Present Illness Time Seen by Provider: 07/20/24 19:10 Source: patient Exam Limitations: no limitations Patient Subjective Stated Complaint: pt states that her heart was racing and you had pain in the left rib cage under her breast and her left shoulder, hurts to take deep breaths, headache, all began yesterday, pt was lightheaded and nauseous and shaky yesterday as well Triage Nursing Assessment: Pt brought self to the ER, vitals wnl, rates overall pain as 2/10, normal sinus, still hurts to take a deep breath but not as bad as yesterday, denies cardiac history, skin n/w/d, doesn't appear to be in any distress Physician History: Patient is a 34-year-old female history of migraine headaches smoker previously on contraceptives as of 2 months ago presents to our ED for evaluation of shortness of breath and left-sided chest pain. Symptoms started yesterday morning. Patient states she woke with a migraine headache. As the day went on she experienced heart palpitations. Then she experienced some pain into her left shoulder. Symptoms have been intermittent into today. Currently no active complaints. No associated nausea vomiting or diaphoresis. No trauma no fever. Symptoms are mild to moderate in intensity. No specific worsening or improving factors. Patient states he is otherwise healthy. She voices no other complaints or concerns at this time. Portions of this note were created with voice recognition technology. There may be grammatical, spelling, punctuation or sound alike errors Timing/Duration: yesterday Severity: moderate Modifying Factors: Improves With: nothing Associated Symptoms: denies symptoms Allergies/Adverse Reactions: amphetamine aspartate [From Adderall] Allergy (Verified 07/20/24 18:18) amphetamine sulfate [From Adderall] Allergy (Verified 07/20/24 18:18) dextroamphetamine saccharate [From Adderall] Allergy (Verified 07/20/24 18:18) dextroamphetamine sulfate [From Adderall] Allergy (Verified 07/20/24 18:18) Home Medications: No Reportable Medications [No Reported Medications] 07/20/24 [History] Hx Tetanus, Diphtheria Vaccination/Date Given: No Hx Influenza Vaccination/Date Given: No Hx Pneumococcal Vaccination/Date Given: No Travel Risk - International Travel Have you traveled outside of the country in past 3 weeks: No - Emerging Infectious Disease Are you exhibiting symptoms associated with any current EIDs: No - Review of Systems Constitutional: No Symptoms, No Fever, No Chills Eyes: No Symptoms Ears, Nose, & Throat: No Symptoms Respiratory: No Symptoms, No Cough, No Dyspnea Cardiac: No Symptoms, No Chest Pain, No Edema, No Syncope Abdominal/Gastrointestinal: No Symptoms, No Abdominal Pain, No Nausea, No Vomiting, No Diarrhea Genitourinary Symptoms: No Symptoms, No Dysuria Musculoskeletal: No Symptoms, No Back Pain, No Neck Pain Skin: No Symptoms, No Rash Neurological: No Symptoms, No Dizziness, No Focal Weakness, No Sensory Changes Psychological: No Symptoms Endocrine: No Symptoms Hematologic/Lymphatic: No Symptoms Immunological/Allergic: No Symptoms All Other Systems: Reviewed and Negative - Past Medical History Pertinent Past Medical History: Yes Neurological History: No Pertinent History ENT History: No Pertinent History Cardiac History: No Pertinent History Respiratory History: No Pertinent History Endocrine Medical History: Hypoglycemia Musculoskeletal History: No Pertinent History GI Medical History: No Pertinent History History: No Pertinent History Psycho-Social History: Anxiety, Depression Female Reproductive Disorders: No Pertinent History Other Medical History: swollen liver - Past Surgical History Past Surgical History: Yes Neuro Surgical History: No Pertinent History Cardiac: No Pertinent History Respiratory: No Pertinent History Gastrointestinal: No Pertinent History Genitourinary: No Pertinent History Musculoskeletal: No Pertinent History Female Surgical History: Section Other Surgical History: CSECTION X3 - Female History Hx Last Menstrual Period: jul 21 2013 Hx Now: No (had been on depo till 2 months) - Social History Smoking Status: Current every day smoker How long have you smoked: vapes Exposure to second hand smoke: Yes Drug Use: none Patient Lives Alone: No - Social Determinants of Health Will the patient participate in the screening: Yes Do you worry about a steady place to live?: No Do you have any problems with any of the following?: No known problems In the past 12 months,have you had to go without utilities?: No Transportation Issues: No Has anyone in your support network made you feel unsafe?: No Have you or anyone in your house had to go without enough: No - Nursing Vital Signs Nursing Vital Signs: Initial Vital Signs Temperature 98.2 F 07/20/24 18:06 Pulse Rate 78 07/20/24 18:06 Respiratory Rate 21 07/20/24 18:06 Blood Pressure 129/85 07/20/24 18:06 O2 Sat by Pulse Oximetry 98 07/20/24 18:06 Pain Scale Pain Intensity 2 - Physical Exam General Appearance: no apparent distress, alert Eye Exam: PERRL/EOMI, eyes nml inspection Ears, Nose, Throat Exam: normal ENT inspection, TMs normal, pharynx normal, moist mucous membranes Neck Exam: normal inspection, non-tender, supple, full range of motion Respiratory Exam: normal breath sounds, lungs clear, airway intact, No respiratory distress Cardiovascular Exam: regular rate/rhythm, normal heart sounds, normal peripheral pulses Gastrointestinal/Abdomen Exam: soft, normal bowel sounds, No tenderness, No mass Back Exam: normal inspection, normal range of motion, No CVA tenderness, No vertebral tenderness Extremity Exam: normal inspection, normal range of motion, pelvis stable Neurologic Exam: alert, oriented x 3, cooperative, normal mood/affect, sensation nml, No motor deficits Skin Exam: normal color, warm, dry, No rash Lymphatic Exam: No adenopathy SpO2 Interpretation: normal SpO2: 98 O2 Delivery: Room Air - Course Nursing assessment & vital signs reviewed: Yes EKG Interpreted by Me: RATE (74), Sinus Rhythm, NORMAL AXIS, NORMAL INTERVALS, NORMAL QRS - CT Exams Chest CT Interpretation: Tele-radiologist Report (No comps. Normal CT PE) Ordered Tests: Active Orders 24 hr Category Date Time Status Breaker Up Machine Operator STAT Care 07/20/24 19:01 Active EKG-ER Only STAT Care 07/20/24 19:00 Active IV Insertion STAT Care 07/20/24 19:00 Active Pulse Oximetry (ED) STAT Care 07/20/24 19:00 Active CHEST WITH CONTRAST [CT] Stat Exams 07/20/24 19:59 Taken CBC W DIFF Stat Lab 07/20/24 19:15 Completed CMP Stat Lab 07/20/24 19:15 Completed D-DIMER QUANTITATIVE Stat Lab 07/20/24 19:15 Completed HCG QUALITATIVE, URINE Stat Lab 07/20/24 20:10 Completed TROPONIN Q4H Lab 07/20/24 19:15 Completed TROPONIN Q4H Lab 07/20/24 23:00 Ordered TROPONIN Q4H Lab 07/21/24 03:00 Ordered TSH [TSH, 3RD Generation] Stat Lab 07/20/24 19:15 Completed UA W/RFX UR CULTURE Stat Lab 07/20/24 19:00 Completed Urine Triage Profile Stat Lab 07/20/24 19:00 Completed Lab/Rad Data: Laboratory Result Diagrams 07/20/24 19:15 07/20/24 19:15 Laboratory Results 07/20/24 07/20/24 07/20/24 Range/Units 20:10 19:15 19:15 WBC (3.98-10.04) x10^3/uL RBC (3.93-5.22) x10^6/uL Hgb (11.2-15.7) g/dL Hct (34.1-44.9) % MCV (79.4-94.8) fL MCH (25.6-32.2) pg MCHC (32.2-35.5) g/dL RDW (11.7-14.4) % Plt Count (182-369) x10^3/uL MPV (9.4-12.3) fL Gran % (34.0-71.1) % Immature Gran % (Auto) (0.001-0.429) % Nucleat RBC Rel Count (0.00-0.2) % Eos # (Auto) (0.04-0.36) x10^3/uL Immature Gran # (Auto) (0.001-0.031) x10^3u/L Absolute Lymphs (auto) (1.18-3.74) x10^3/uL Absolute Monos (auto) (0.24-0.86) x10^3/uL Absolute Nucleated RBC (0.00-0.012) x10^3u/L Lymphocytes % (19.3-51.7) % Monocytes % (4.7-12.5) % Eosinophils % (0.7-5.8) % Basophils % (0.1-1.2) % Absolute Granulocytes (1.56-6.13) x10^3/uL Basophils # (0.01-0.08) x10^3/uL D-Dimer 0.68 H* (0.0-0.50) mg/L Sodium (135-145) mmol/L Potassium (3.5-5.1) mmol/L Chloride (98-107) mmol/L Carbon Dioxide (22-30) mmol/L Anion Gap (5-15) MEQ/L BUN (7-17) mg/dL Creatinine (0.52-1.04) mg/dL Estimated GFR ML/MIN Glucose (74-106) mg/dL Calcium (8.4-10.2) mg/dL Total Bilirubin (0.2-1.3) mg/dL AST (14-36) U/L ALT (0-35) U/L Alkaline Phosphatase (38-126) U/L Troponin I (0.000-0.033) ng/mL Serum Total Protein (6.3-8.2) g/dL Albumin (3.5-5.0) g/dL TSH 3rd Generation 7.115 H (0.470-4.680) mIU/L Urine Color (Yellow) Urine Appearance (Clear) Urine pH (4.6-8.0) Ur Specific [place] (1.005-1.030) Urine Protein (Negative) Urine Glucose (UA) (Negative) mg/dL Urine Ketones (Negative) Urine Blood (Negative) Urine Nitrite (Negative) Urine Bilirubin (Negative) Urine Urobilinogen (0.2) mg/dL Ur Leukocyte Esterase (Negative) U Hyaline Cast (Auto) (0-2) /LPF Urine Microscopic RBC (0-5) /HPF Urine Microscopic WBC (0-5) /HPF Ur Epithelial Cells (None Seen) /HPF Urine Bacteria (None Seen) /HPF Urine Culture Reflexed (NO) Urine HCG, Qual NEGATIVE (NEGATIVE) Urine Opiates Level (NEGATIVE) Ur Methadone (NEGATIVE) Urine Barbiturates (NEGATIVE) Ur Phencyclidine (PCP) (NEGATIVE) Urine Amphetamine (NEGATIVE) U Benzodiazepine Level (NEGATIVE) Urine Cocaine (NEGATIVE) Urine Marijuana (THC) (NEGATIVE) 07/20/24 07/20/24 07/20/24 Range/Units 19:15 19:15 19:00 WBC 10.4 H (3.98-10.04) x10^3/uL RBC 4.31 (3.93-5.22) x10^6/uL Hgb 12.4 (11.2-15.7) g/dL Hct 37.9 (34.1-44.9) % MCV 87.9 (79.4-94.8) fL MCH 28.8 (25.6-32.2) pg MCHC 32.7 (32.2-35.5) g/dL RDW 13.1 (11.7-14.4) % Plt Count 328 (182-369) x10^3/uL MPV 10.9 (9.4-12.3) fL Gran % 65.9 (34.0-71.1) % Immature Gran % (Auto) 0.3 (0.001-0.429) % Nucleat RBC Rel Count 0.0 (0.00-0.2) % Eos # (Auto) 0.10 (0.04-0.36) x10^3/uL Immature Gran # (Auto) 0.03 (0.001-0.031) x10^3u/L Absolute Lymphs (auto) 2.80 (1.18-3.74) x10^3/uL Absolute Monos (auto) 0.56 (0.24-0.86) x10^3/uL Absolute Nucleated RBC 0.00 (0.00-0.012) x10^3u/L Lymphocytes % 26.8 (19.3-51.7) % Monocytes % 5.4 (4.7-12.5) % Eosinophils % 1.0 (0.7-5.8) % Basophils % 0.6 (0.1-1.2) % Absolute Granulocytes 6.89 H (1.56-6.13) x10^3/uL Basophils # 0.06 (0.01-0.08) x10^3/uL D-Dimer (0.0-0.50) mg/L Sodium 138 (135-145) mmol/L Potassium 4.4 (3.5-5.1) mmol/L Chloride 103 (98-107) mmol/L Carbon Dioxide 24 (22-30) mmol/L Anion Gap 15.7 H (5-15) MEQ/L BUN 11 (7-17) mg/dL Creatinine 0.79 (0.52-1.04) mg/dL Estimated GFR 100.6 ML/MIN Glucose 95 (74-106) mg/dL Calcium 10.0 (8.4-10.2) mg/dL Total Bilirubin 0.40 (0.2-1.3) mg/dL AST 37 H (14-36) U/L ALT 55 H (0-35) U/L Alkaline Phosphatase 96 (38-126) U/L Troponin I < 0.012 (0.000-0.033) ng/mL Serum Total Protein 8.1 (6.3-8.2) g/dL Albumin 4.7 (3.5-5.0) g/dL TSH 3rd Generation (0.470-4.680) mIU/L Urine Color (Yellow) Urine Appearance (Clear) Urine pH (4.6-8.0) Ur Specific [place] (1.005-1.030) Urine Protein (Negative) Urine Glucose (UA) (Negative) mg/dL Urine Ketones (Negative) Urine Blood (Negative) Urine Nitrite (Negative) Urine Bilirubin (Negative) Urine Urobilinogen (0.2) mg/dL Ur Leukocyte Esterase (Negative) U Hyaline Cast (Auto) (0-2) /LPF Urine Microscopic RBC (0-5) /HPF Urine Microscopic WBC (0-5) /HPF Ur Epithelial Cells (None Seen) /HPF Urine Bacteria (None Seen) /HPF Urine Culture Reflexed (NO) Urine HCG, Qual (NEGATIVE) Urine Opiates Level NEGATIVE (NEGATIVE) Ur Methadone NEGATIVE (NEGATIVE) Urine Barbiturates NEGATIVE (NEGATIVE) Ur Phencyclidine (PCP) NEGATIVE (NEGATIVE) Urine Amphetamine NEGATIVE (NEGATIVE) U Benzodiazepine Level NEGATIVE (NEGATIVE) Urine Cocaine NEGATIVE (NEGATIVE) Urine Marijuana (THC) NEGATIVE (NEGATIVE) 07/20/24 Range/Units 19:00 WBC (3.98-10.04) x10^3/uL RBC (3.93-5.22) x10^6/uL Hgb (11.2-15.7) g/dL Hct (34.1-44.9) % MCV (79.4-94.8) fL MCH (25.6-32.2) pg MCHC (32.2-35.5) g/dL RDW (11.7-14.4) % Plt Count (182-369) x10^3/uL MPV (9.4-12.3) fL Gran % (34.0-71.1) % Immature Gran % (Auto) (0.001-0.429) % Nucleat RBC Rel Count (0.00-0.2) % Eos # (Auto) (0.04-0.36) x10^3/uL Immature Gran # (Auto) (0.001-0.031) x10^3u/L Absolute Lymphs (auto) (1.18-3.74) x10^3/uL Absolute Monos (auto) (0.24-0.86) x10^3/uL Absolute Nucleated RBC (0.00-0.012) x10^3u/L Lymphocytes % (19.3-51.7) % Monocytes % (4.7-12.5) % Eosinophils % (0.7-5.8) % Basophils % (0.1-1.2) % Absolute Granulocytes (1.56-6.13) x10^3/uL Basophils # (0.01-0.08) x10^3/uL D-Dimer (0.0-0.50) mg/L Sodium (135-145) mmol/L Potassium (3.5-5.1) mmol/L Chloride (98-107) mmol/L Carbon Dioxide (22-30) mmol/L Anion Gap (5-15) MEQ/L BUN (7-17) mg/dL Creatinine (0.52-1.04) mg/dL Estimated GFR ML/MIN Glucose (74-106) mg/dL Calcium (8.4-10.2) mg/dL Total Bilirubin (0.2-1.3) mg/dL AST (14-36) U/L ALT (0-35) U/L Alkaline Phosphatase (38-126) U/L Troponin I (0.000-0.033) ng/mL Serum Total Protein (6.3-8.2) g/dL Albumin (3.5-5.0) g/dL TSH 3rd Generation (0.470-4.680) mIU/L Urine Color Yellow (Yellow) Urine Appearance Clear (Clear) Urine pH 5.5 (4.6-8.0) Ur Specific [place] 1.010 (1.005-1.030) Urine Protein Negative (Negative) Urine Glucose (UA) Negative (Negative) mg/dL Urine Ketones Negative (Negative) Urine Blood Negative (Negative) Urine Nitrite Negative (Negative) Urine Bilirubin Negative (Negative) Urine Urobilinogen 0.2 (0.2) mg/dL Ur Leukocyte Esterase Negative (Negative) U Hyaline Cast (Auto) NONE SEEN (0-2) /LPF Urine Microscopic RBC 0-2 (0-5) /HPF Urine Microscopic WBC 0-2 (0-5) /HPF Ur Epithelial Cells None Seen (None Seen) /HPF Urine Bacteria Rare A (None Seen) /HPF Urine Culture Reflexed NO (NO) Urine HCG, Qual (NEGATIVE) Urine Opiates Level (NEGATIVE) Ur Methadone (NEGATIVE) Urine Barbiturates (NEGATIVE) Ur Phencyclidine (PCP) (NEGATIVE) Urine Amphetamine (NEGATIVE) U Benzodiazepine Level (NEGATIVE) Urine Cocaine (NEGATIVE) Urine Marijuana (THC) (NEGATIVE) - Progress Progress: improved Progress Note: 34-year-old female presents to our ED for evaluation of chest pain. Physical exam otherwise unremarkable. No active chest pain during my exam or during her course in our emergency department. D-dimer positive. CTA chest negative. Troponin negative x 2. Vital stable. EKG normal sinus rhythm. Patient's heart score is 1. No indication for further workup at this time. Will discharge home. Patient was observed to have an elevated TSH indicating low functioning thyroid. Patient advised of the findings. Patient advised to follow-up with her primary care doctor for reevaluation including likely starting thyroid hormone replacement. Patient understands the importance of follow-up. She agrees to follow-up with her primary care doctor within 48 hours for reevaluation. Portions of this note were created with voice recognition technology. There may be grammatical, spelling, punctuation or sound alike errors Complexity of problem addressed is moderate acute complicated. No critical care time. Complexity data reviewed and analyzed is moderate. Test ordered chest reviewed results analyzed and correlated clinically with history and physical exam. Risk of complication and or risk of morbidity/mortality of patient management is low. Vital stable. Time spent to discharge patient is approximately 15 minutes. Plan of care established for shared decision making. No social determinants of health present to impede follow-up. Portions of this note were created with voice recognition technology. There may be grammatical, spelling, punctuation or sound alike errors 07/20/24 22:19 Counseled pt/family regarding: lab results, diagnosis, need for follow-up, rad results - Departure Departure Disposition: Home Clinical Impression: Hypothyroidism, Chest pain Condition: Stable Critical Care Time: No Referrals: CARMELITA GALLO TISSUE REWINDER [Primary Care Provider] - Follow up/PCP as directed Additional Instructions: Our testing today indicates that you have a low functioning thyroid gland. Please follow-up with your family doctor within 48 hours for reassessment regarding the need to start thyroid hormone replacement therapy as well as further evaluation of your chest pain. Discharge/Care Plan ANGELICA KULKARNI was seen on 07/20/24 in the Emergency Room. The patient was counseled regarding Diagnosis,Lab results, Imaging studies, need for follow up and when to return to the Emergency Room. Prescriptions given: Discharge Note I have spoken with the patient and/or caregivers. I have explained the patient's condition, diagnosis and treatment plan based on the information available to me at this time. I have answered the patient's and/or caregiver's questions and addressed any concerns. The patient and/or caregivers have as good understanding of the patient's diagnosis, condition and treatment plan as can be expected at this point. The vital signs have been stable. The patient's condition is stable and appropriate for discharge from the emergency department. The patient will pursue further outpatient evaluation with the primary care physician or other designated or consulting physician as outlined in the discharge instructions. The patient and/or caregivers are agreeable to this plan of care and follow-up instructions have been explained in detail. The patient and/or caregivers have received these instruction. The patient/and or caregivers are aware that any significant change in condition or worsening of symptoms should prompt an immediate return to this or the closest emergency department or call 911.
[2024-07-20 19:21] LABS: Appearance Clear (Clear); Bacteria Rare /HPF (None Seen); Bilirubin Negative (Negative); Blood Negative (Negative); Epithelial Cells None Seen /HPF (None Seen); Glucose, Urine Negative (Negative); Hyaline Casts NONE SEEN /LPF (0-2); Ketones Negative (Negative); Leukocyte Esterase Negative (Negative); Nitrite Negative (Negative); Ph 5.5 (4.6-8.0); Protein,Urine Dip Negative (Negative); RBC 0-2 /HPF (0-5); Urobilinogen 0.2 mg/dL (0.2); WBC 0-2 /HPF (0-5)
[2024-07-20 19:24] LABS: Absolute Neutrophil Ct (ANC) 6.89 x10^3/uL (1.56-6.13); BASOPHIL % 0.6 % (0.1-1.2); Basophil (Absolute #) 0.06 x10^3/uL (0.01-0.08); Hematocrit 37.9 % (34.1-44.9); Hemoglobin 12.4 g/dL (11.2-15.7); IMMATURE GRAN # 0.03 x10^3u/L (0.001-0.031); IMMATURE GRAN % 0.3 % (0.001-0.429); Lymphocytes % 26.8 % (19.3-51.7); Mean Cell Volume 87.9 fL (79.4-94.8); Mean Corpuscular Hemoglobin 28.8 pg (25.6-32.2); Mean Corpuscular Hgb Concent. 32.7 g/dL (32.2-35.5); Mean Platelet Volume 10.9 fL (9.4-12.3); Monocyte (Absolute #) 0.56 x10^3/uL (0.24-0.86); Monocytes % 5.4 % (4.7-12.5); Neutrophil % 65.9 % (34.0-71.1); Platelet Count 328 x10^3/uL (182-369); Red Blood Count 4.31 x10^6/uL (3.93-5.22); Red Cell Distribution Width 13.1 % (11.7-14.4); White Blood Count 10.4 x10^3/uL (3.98-10.04)
[2024-07-20 19:34] LABS: Amphetamine,Urine NEGATIVE (NEGATIVE); Barbiturate,Urine NEGATIVE (NEGATIVE); Benzodiazepine,Urine NEGATIVE (NEGATIVE); Cocaine,Urine NEGATIVE (NEGATIVE); Methadone,Urine NEGATIVE (NEGATIVE); Opiate,Urine NEGATIVE (NEGATIVE); PCP,Urine NEGATIVE (NEGATIVE); THC,Urine NEGATIVE (NEGATIVE)
[2024-07-20 19:50] LABS: ALBUMIN 4.7 g/dL (3.5-5.0); ALKALINE PHOSPHATASE 96 U/L (38-126); ANION GAP 15.7 MEQ/L (5-15); BLOOD UREA NITROGEN 11 mg/dL (7-17); CHLORIDE 103 mmol/L (98-107); Carbon Dioxide 24 mmol/L (22-30); Creatinine 1 0.79 mg/dL (0.52-1.04); EST GLOMERULAR FILTRATION RATE 100.6 ML/MIN; Glucose 95 mg/dL (74-106); Potassium 4.4 mmol/L (3.5-5.1); SGOT/AST 37 U/L (14-36); SGPT/ALT 55 U/L (0-35); SODIUM 138 mmol/L (135-145); TROPONIN < 0.012 ng/mL (0.000-0.033); Total Protein 8.1 g/dL (6.3-8.2)
[2024-07-20 20:15] LABS: HCG URINE TEST NEGATIVE (NEGATIVE)
[2024-07-20 21:31] VITALS: O2SAT 98
[2024-07-20 23:17] VITALS: BP 107/76; PULSE 81; RESP 22
--- NOTE | 2024-07-21 08:43 | XRAY ---
Indication: Chest pain. Elevated d-dimer. Multiple contiguous axial images obtained through the chest using 80 cc Isovue 370 contrast and PE protocol. Comparison: None Good opacification pulmonary arteries including lobar and segmental branches. No pulmonary embolus. Heart not enlarged. Aorta is normal in course and caliber. Small mediastinal and left hilar calcified nodes. No pathologic mediastinal/hilar lymphadenopathy. Lungs inflated with minimal bilateral dependent atelectasis. No suspicious pulmonary mass/nodule, infiltrate, or effusion. Bony thorax intact. Limited upper abdomen demonstrates incompletely visualized 1 cm right mid renal cortical cyst. Impression: Negative pulmonary embolus. No acute cardiopulmonary abnormalities. Incidental right renal cyst.
== END 2024-07-20 23:00 | disposition home or self-care (01) ==
LOC: ED 17:17
DX: R07.9 Chest pain, unspecified (principal); E03.9 Hypothyroidism, unspecified; R06.02 Shortness of breath; F17.290 Nicotine dependence, other tobacco product, uncomplicated
CPT/HCPCS: 36000; 36415; 71260; 80053; 80307; 81001; 81025; 84443; 84484; 85025; 85379; 93005; 93041; 94760; 99284